=== PATIENT | female | born 1990 | race Two or more races ===

== ENCOUNTER 2020-07-13 14:16 | Outpatient (REF) | payer OTHER, SELFPAY ==
[2020-07-14 15:02] LABS: BV Int Neg Control Negative (Negative); BV Int Pos Control Positive (Positive)
== END 2020-07-13 14:17 | disposition home or self-care (01) ==
LOC: HO.LAB 14:16
PROVIDERS: PCP Internal Medicine; Referring Provider Internal Medicine; Visit Provider Advanced Practice Midwife
DX: Z30.431 Encounter for routine checking of intrauterine contraceptive device (principal); N89.8 Other specified noninflammatory disorders of vagina
CPT/HCPCS: 87480; 87510; 87660; 99213

== ENCOUNTER 2020-10-12 08:12 | Outpatient (REF) | payer OTHER, SELFPAY ==
[2020-10-13 09:29] LABS: BV Int Neg Control Negative (Negative); BV Int Pos Control Positive (Positive)
[2020-10-14 00:27] LABS: C. trachomatis RNA TMA NOT DETECTED (NOT DETECTED); N. gonorrhoeae RNA TMA NOT DETECTED (NOT DETECTED)
[2020-10-15 07:51] LABS: HPV mRNA E6/E7 Not Detected (Not Detected)
== END 2020-10-12 08:13 | disposition home or self-care (01) ==
LOC: HO.LAB 08:12
PROVIDERS: PCP Internal Medicine; Visit Provider Advanced Practice Midwife
DX: Z01.419 Encounter for gynecological examination (general) (routine) without abnormal findings (principal); N89.8 Other specified noninflammatory disorders of vagina; F17.200 Nicotine dependence, unspecified, uncomplicated; Z20.2 Contact with and (suspected) exposure to infections with a predominantly sexual mode of transmission; Z97.5 Presence of (intrauterine) contraceptive device
CPT/HCPCS: 36415; 87480; 87491; 87510; 87591; 87624; 87625; 87660; 88141; 88142

== ENCOUNTER 2020-10-27 15:23 | Outpatient (REF) | payer OTHER, SELFPAY ==
--- NOTE | 2020-10-27 15:27 | XR_ITS ---
EXAMINATION: XR CHEST CLINICAL INFORMATION: Cough COMPARISON: Previous chest x-ray most recent April 2013 TECHNIQUE: 2 views of the chest were obtained. FINDINGS: No significant abnormality is noted involving the heart, lungs, mediastinum, bony thorax or soft tissues. XR/XR chest 2V IMPRESSION: Unremarkable examination.
== END 2020-10-27 15:24 | disposition home or self-care (01) ==
LOC: HO.HMGCX 15:23
PROVIDERS: PCP Internal Medicine; Visit Provider Internal Medicine
DX: R05 Cough (principal)
CPT/HCPCS: 71046

== ENCOUNTER 2021-04-06 10:41 | Outpatient (REF) | payer OTHER, SELFPAY ==
[2021-04-07 05:34] LABS: CT PCR NOT DETECTED (Not Detect.); NG PCR NOT DETECTED (Not Detect.)
[2021-04-07 08:51] LABS: BV Int Neg Control Negative (Negative); BV Int Pos Control Positive (Positive)
== END 2021-04-06 10:42 | disposition home or self-care (01) ==
LOC: HO.LAB 10:41
PROVIDERS: PCP Internal Medicine; Visit Provider Advanced Practice Midwife
DX: Z11.3 Encounter for screening for infections with a predominantly sexual mode of transmission (principal); N76.0 Acute vaginitis; Z20.2 Contact with and (suspected) exposure to infections with a predominantly sexual mode of transmission
CPT/HCPCS: 87480; 87491; 87510; 87591; 87660; 99212

== ENCOUNTER 2021-09-21 15:10 | Outpatient (REF) | payer OTHER, SELFPAY ==
[2021-09-22 03:21] LABS: CT PCR NOT DETECTED (Not Detect.); NG PCR NOT DETECTED (Not Detect.)
[2021-09-22 09:44] LABS: BV Int Neg Control Negative (Negative); BV Int Pos Control Positive (Positive)
== END 2021-09-21 15:11 | disposition home or self-care (01) ==
LOC: HO.LAB 15:10
PROVIDERS: Advanced Practice Midwife; PCP Internal Medicine; Visit Provider Advanced Practice Midwife
DX: N76.0 Acute vaginitis (principal); R30.0 Dysuria; R10.2 Pelvic and perineal pain; T83.32XA Displacement of intrauterine contraceptive device, initial encounter; Z20.2 Contact with and (suspected) exposure to infections with a predominantly sexual mode of transmission; Z32.02 Encounter for pregnancy test, result negative
CPT/HCPCS: 81003; 81025; 87086; 87480; 87491; 87510; 87591; 87660; 99212

== ENCOUNTER → 2021-10-06 09:09 | Outpatient (BNVA) | payer OTHER, SELFPAY | PROVIDERS: PCP Internal Medicine; Visit Provider Advanced Practice Midwife ==

== ENCOUNTER 2021-10-13 13:14 | Outpatient (REF) | payer OTHER, SELFPAY ==
--- NOTE | ~2021-10-13 | US_ITS ---
EXAMINATION: US PELVIS CLINICAL INFORMATION: Intrauterine device COMPARISON: 05.14.2020 TECHNIQUE: Ultrasound of the pelvis is performed using both transabdominal and transvaginal transducers along with Doppler. Transvaginal imaging is performed due to inadequate visualization transabdominally. FINDINGS: Uterus: The uterus is anteverted and measures 8.9 x 3.7 x 4.6 cm. Intrauterine device appears centrally located within the endometrial canal, with the tip 5 mm fundus. The double wall endometrial thickness is 0.2 mm. The uterus is smooth in contour and has normal myometrial echogenicity. No visible fibroid. Nabothian cysts present within the cervix. Adnexa: Both ovaries are visualized. There is normal color flow to the adnexa. There is no ovarian torsion. There is no pelvic ascites or fluid collection. Right ovary measures 3.8 x 2.0 x 1.6 cm. Physiologic follicles present. Left ovary measures 3.9 x 1.9 x 2.2 cm. Physiologic follicles present. US/US pelvic and transvaginal IMPRESSION: IUD appropriately positioned within the endometrial canal.
== END 2021-10-13 13:15 | disposition home or self-care (01) ==
LOC: HO.US 13:14
PROVIDERS: Visit Provider Advanced Practice Midwife
DX: R10.2 Pelvic and perineal pain (principal); T83.32XA Displacement of intrauterine contraceptive device, initial encounter
CPT/HCPCS: 76830; 76856

== ENCOUNTER → 2021-11-03 11:26 | Outpatient (BNVA) | payer OTHER, SELFPAY | PROVIDERS: PCP Internal Medicine; Visit Provider Advanced Practice Midwife ==

== ENCOUNTER 2022-03-07 08:46 | Emergency (ER) | payer OTHER, SELFPAY ==
--- NOTE | ~2022-03-07 | US_ITS ---
EXAMINATION: US PELVIS AND TRANSVAGINAL CLINICAL INFORMATION: Left pelvic pain with history of ovarian cysts. COMPARISON: Pelvic ultrasound 10/13/2021. Pelvis ultrasound 05/14/2020. TECHNIQUE: Ultrasound of the pelvis is performed using both transabdominal and transvaginal transducers along with Doppler. Transvaginal imaging is performed due to inadequate visualization transabdominally. FINDINGS: Uterus: The uterus is retroverted and measures 7.6 x 4.0 x 5.1 cm. The double wall endometrial thickness is not appreciated as an IUD is present in good position. The uterus is smooth in contour and has normal myometrial echogenicity. No visible fibroid. A nabothian cyst is present in the cervix. Adnexa: Both ovaries are visualized. There is normal color flow to the adnexa. There is no ovarian torsion. There is no pelvic ascites or large fluid collection. Right ovary measures 3.4 x 1.3 x 2.4 cm for a volume of 5.5 mL. Left ovary measures 5.7 x 3.9 x 6.1 cm for a volume of 71 mL which includes a large hemorrhagic cyst measuring 4.8 x 3.3 x 4.3 cm, new when compared to the prior. A small amount of free fluid is present around the left ovary. US/US pelvic and transvaginal IMPRESSION: Large hemorrhagic left ovarian cyst, new when compared to 05/14/2020.
[2022-03-07 09:20] VITALS: BP 107/67; PULSE 90; RESP 18; TEMP 37.8; O2SAT 97; BMI 26.9
--- NOTE | 2022-03-07 11:32 | ED_ITS ---
HPI - General Adult General Chief complaint: Headache Stated complaint: Migraine/L lower abd pain Time Seen by Provider: 03/07/22 11:30 Source: patient Mode of arrival: ambulatory Limitations: no limitations History of Present Illness HPI narrative: 31-year-old female came in for evaluation of left lower abdominal/pelvic pain and migraine. Started with left lower pelvic pain is mostly in the left groin area, pain has been constant for the past 3 days described as severe pain localized to left groin area, pain is more when she urinate and also with movement, pain is not radiating described as constant wax and wanes, no dysuria or frequency. Patient has a history of ovarian cyst and get similar pain. Sera. Patient also is known to have migraine been having whole head pain bilateral jaws pain and teeth pain. Associated with nausea, subjective fever, no sore throat, no coughing. No sick contact. Related Data Home Medications Medication Instructions Recorded Confirmed levonorgestrel 20 mcg/24 hours (7 0 device vaginal ONCE 07/13/20 01/04/22 yrs) 52 mg intrauterine device Previous Rx's Medication Instructions Recorded diphenhydramine HCl 25 mg capsule 25 mg PO BEDTIME PRN sleep #60 caps 07/20/20 (Benadryl) buspirone 5 mg tablet 5 mg PO BID #30 tabs 10/14/20 benzonatate 100 mg capsule 100 mg PO TID #30 caps 10/27/20 (Tessalon Perles) sumatriptan succinate 50 mg tablet 50 mg PO Q2-4H PRN migraine 09/29/21 (Imitrex) headache #20 tabs fexofenadine 180 mg tablet 180 mg PO DAILY #90 tabs 01/04/22 fluticasone propionate 50 2 spray intranasal DAILY 1 month 01/04/22 mcg/actuation nasal #16 grams spray,suspension (Allergy Relief (fluticasone)) sodium chloride 0.65 % nasal spray 2 spray intranasal Q2H PRN dry 01/04/22 aerosol ([place] Saline) nasal passages #50 mL Allergies Allergy/AdvReac Type Severity Reaction Status Date / Time No Known Allergies Allergy Verified 01/04/22 10:20 Review of Systems Review of Systems: All other systems are reviewed and are negative Constitutional: Reports as per HPI and Reports no additional constitutional complaints Eyes: Reports as per HPI and Reports no additional eye complaints Reports system reviewed and no additional complaints, except as documented Cardiovascular: Reports as per HPI and Reports no additional cardiovascular complaints Respiratory: Reports as per HPI and Reports no additional respiratory complaints Gastrointestinal: Reports as per HPI and Reports no additional gastrointestinal complaints Genitourinary: Reports no additional female genitourinary complaints Musculoskeletal: Reports no additional musculoskeletal complaints Skin/Breast: Reports system reviewed and no additional complaints, except as docu Psychiatric: Reports no additional psychiatric complaints Endocrine: Reports no additional endocrine complaints Hematologic/Lymphatic: Reports no additional hematologic/lymphatic complaints Allergic/Immunologic: Reports no additional allergic/immunologic complaints Reports system reviewed and no additional complaints, except as documented and Reports Abnormal speech present COUNTS INCLUDE 234 BEDS AT THE [facility] Past Medical History Medical History Anemia History of abnormal cervical Pap smear History of anxiety Migraine Family History Family History Mother Ovarian cancer Metastatic disease H/O colectomy Maternal Grandmother Heart disease CVD (cardiovascular disease) Diabetes mellitus Maternal Grandfather Hypertension Social History Social History Alcohol intake: current Alcohol intake frequency: holidays/special occasions only Alcohol type: other Patient Tobacco Use Status: Former Tobacco user Smoked in Last 30 Days: No Use of substances other than those prescribed or required for medical reasons: No Advance Directives: No Advance Directives Information Provided: No Patient : No Current occupational status: employed Current occupation: [employer] Physical Exam ED Vital Signs: Vital Signs - 24 hr 03/07/22 09:20 03/07/22 12:20 Temperature 100.1 F Pulse Rate 90 83 Respiratory Rate 18 18 Blood Pressure 107/67 129/62 Pulse Oximetry 97 99 Oxygen Delivery Method Room Air Room Air BMI result Body Mass Index 26.9 Vital signs have been reviewed as appeared to be correct. Blood pressure normal. Heart rate normal. Respiration rate normal. Temperature low-grade fever. Oxygen saturation normal. Appearance: Alert. Oriented X3. No acute distress. Head: Normal external exam. Normocephalic. Atraumatic. No García signs noted. No raccoon eyes noted Eyes: PERRLA. EOMI. Conjunctiva and sclera normal. Eyelids normal. ENT: TM's Normal. Pharynx normal. Uvula midline. Moist mucous membranes. No trismus noted. No drooling noted. No muffled voice noted. Neck: Normal inspection. Neck supple. FROM. No adenopathy. Thyroid Normal. No meningeal signs. No neck mass noted. CVS: Normal heart rate and rhythm. Heart sound normal. No murmurs noted. Pulses normal throughout. Respiratory: No respiratory distress. Painless inspiration. Breath sounds normal. No wheezes/rales/rhonchi noted. Chest nontender. No accessory muscle usage noted or decreased air movement noted. Abdomen: Soft, mild left lower quadrant tenderness, no rebound tenderness, no guarding.. Bowel sounds normal in all 4 quadrants. No distention noted. No organomegaly noted. No visible injury noted. Back: No CVA tenderness. Full range of motion noted. Skin: Skin warm and dry. Normal skin color. Normal skin turgor. No rashes/le sions/lacerations noted. Extremities: No lower extremity edema. Extremities exhibit normal range of motion. Extremities nontender. Neuro: Oriented X 3. Cranial nerve exam: II-XII are grossly intact No motor deficit. No sensory deficit. Reflexes normal. Course Course Course Narrative: Assessment and plan. 31-year-old female came in for headache and left lower abdominal pain, patient is known to have ovarian cysts, ultrasound is showing hemorrhagic cyst on the left ovary 4.8 x 3.3 x 4.3, otherwise unremarkable ovaries, abdominal pain and headache has improved with Toradol/morphine, patient was instructed to follow-up with her OBGYN in regard to her chronic pelvic pain and chronic cyst formation. Patient also tested positive for COVID that is probably reason for patient's headache. Medical Decision Making Lab Data Lab results reviewed: Yes I reviewed the patient's lab results. Result diagrams: 03/07/22 12:06 03/07/22 12:06 Labs: Lab Results 03/07/22 03/07/22 03/07/22 Range/Units 12:06 12:06 12:06 WBC 5.0 (4.8-10.8) X10*3/uL RBC 3.85 L (4.20-5.50) X10*6/uL Hgb 11.6 L (12.0-16.0) g/dl Hct 35.1 L (37.0-47.0) % MCV 91.2 (80.0-98.0) fL MCH 30.1 (27.0-33.0) pg MCHC 33.0 (31.0-35.0) g/dl RDW 11.9 (11.0-16.0) % Plt Count 183 (160-400) X10*3/uL MPV 10.8 (9.4-12.3) fL Immature Gran % (Auto) 0.2 (0.0-0.4) % Neut % (Auto) 75.4 H (45-73) % Lymph % (Auto) 7.5 L (20-40) % [place]uming % (Auto) 16.5 H (2-11) % Eos % (Auto) 0.2 (0-4) % Baso % (Auto) 0.2 (0-2) % Lymph # (Auto) 0.4 L (1.2-4.9) X10*3/uL [place]uming # (Auto) 0.8 (0.1-1.2) X10*3/uL Eos # (Auto) 0.0 (0.0-0.4) X10*3/uL Baso # (Auto) 0.0 (0.0-0.2) X10*3/uL Abs Immat Gran (auto) 0.01 (0.00-0.03) X10*3/uL Absolute Neuts (auto) 3.7 (2.0-8.3) x10*3/uL Absolute Nucleated RBC 0.000 (0.0-0.012) X10*3/uL Nucleated RBC % (auto) 0.0 (0.0-0.2) /100WBC Sodium 138 (135-145) mmol/L Potassium 3.6 (3.3-5.1) mmol/L Chloride 108 (96-108) mmol/L Carbon Dioxide 23 (22-29) mmol/L Anion Gap 11 L (12-20) BUN 9 (9-16) mg/dL Creatinine 0.72 (0.5-1.4) mg/dL Estim Creat Clear Calc 101.3 Estimated GFR > 60 Random Glucose 81 (60-115) mg/dL Calcium 9.0 (8.4-10.2) mg/dL Total Bilirubin 0.3 (0.0-1.0) mg/dL Direct Bilirubin < 0.2 (0.0-0.5) mg/dL AST 16 (5-31) U/L ALT 16 (0-31) U/L Alkaline Phosphatase 39 (39-117) U/L Total Protein 7.1 (6.5-8.0) g/dL Albumin 4.3 (3.5-5.0) g/dL Lipase 15 (8-78) U/L Urine Color Urine Appearance Urine pH (5.0-8.0) Ur Specific [place] (1.005-1.025) Urine Protein (NEG-TRACE) MG/DL Urine Glucose (UA) (NEG) MG/DL Urine Ketones (NEG) MG/DL Urine Blood (NEG) Urine Nitrite (NEG) Ur Leukocyte Esterase (NEG) Urine RBC (0) /HPF Urine WBC (0-4) /HPF Ur Squamous Epith Cells /LPF Urine Bacteria /LPF Urine Test (NEGATIVE) Influenza Type A (PCR) NEGATIVE (Negative) Influenza Type B (PCR) NEGATIVE (Negative) RSV RNA Qual (PCR) NEGATIVE (Negative) SARS-CoV-2 RNA (RT-PCR) POSITIVE A (Negative) 03/07/22 03/07/22 Range/Units 12:18 12:18 WBC (4.8-10.8) X10*3/uL RBC (4.20-5.50) X10*6/uL Hgb (12.0-16.0) g/dl Hct (37.0-47.0) % MCV (80.0-98.0) fL MCH (27.0-33.0) pg MCHC (31.0-35.0) g/dl RDW (11.0-16.0) % Plt Count (160-400) X10*3/uL MPV (9.4-12.3) fL Immature Gran % (Auto) (0.0-0.4) % Neut % (Auto) (45-73) % Lymph % (Auto) (20-40) % [place] % (Auto) (2-11) % Eos % (Auto) (0-4) % Baso % (Auto) (0-2) % Lymph # (Auto) (1.2-4.9) X10*3/uL [place] # (Auto) (0.1-1.2) X10*3/uL Eos # (Auto) (0.0-0.4) X10*3/uL Baso # (Auto) (0.0-0.2) X10*3/uL Abs Immat Gran (auto) (0.00-0.03) X10*3/uL Absolute Neuts (auto) (2.0-8.3) x10*3/uL Absolute Nucleated RBC (0.0-0.012) X10*3/uL Nucleated RBC % (auto) (0.0-0.2) /100WBC Sodium (135-145) mmol/L Potassium (3.3-5.1) mmol/L Chloride (96-108) mmol/L Carbon Dioxide (22-29) mmol/L Anion Gap (12-20) BUN (9-16) mg/dL Creatinine (0.5-1.4) mg/dL Estim Creat Clear Calc Estimated GFR Random Glucose (60-115) mg/dL Calcium (8.4-10.2) mg/dL Total Bilirubin (0.0-1.0) mg/dL Direct Bilirubin (0.0-0.5) mg/dL AST (5-31) U/L ALT (0-31) U/L Alkaline Phosphatase (39-117) U/L Total Protein (6.5-8.0) g/dL Albumin (3.5-5.0) g/dL Lipase (8-78) U/L Urine Color STRAW Urine Appearance HAZY Urine pH 6.5 (5.0-8.0) Ur Specific [place] 1.010 (1.005-1.025) Urine Protein NEG (NEG-TRACE) MG/DL Urine Glucose (UA) NEG (NEG) MG/DL Urine Ketones NEG (NEG) MG/DL Urine Blood TRACE (NEG) Urine Nitrite NEG (NEG) Ur Leukocyte Esterase NEG (NEG) Urine RBC 1-4 (0) /HPF Urine WBC 0 (0-4) /HPF Ur Squamous Epith Cells TRACE /LPF Urine Bacteria TRACE /LPF Urine Test NEGATIVE (NEGATIVE) Influenza Type A (PCR) (Negative) Influenza Type B (PCR) (Negative) RSV RNA Qual (PCR) (Negative) SARS-CoV-2 RNA (RT-PCR) (Negative) Imaging Data Pelvic ultrasound: Attestation: I personally reviewed and interpreted this imaging study as follows: Radiologist's impression: IUD in place, left ovary home original cyst 4.8 x 3.3 x 4.3 left ovary 5.7 x 3.9 x 6.1 cm in, right ovary 3.4 time 1.3 x 2.4 in signs, free fluid seen to left ovary. Discharge Plan Discharge Clinical Impression: Migraine, Pelvic pain, Ovarian cyst, COVID Patient Disposition: Home, Self-Care Instructions: Covid-19 Viral Syndrome and Novel Coronavirus (ED) Hey/Ath, Ovarian Cyst (ED), Migraine Headache (ED) Additional Instructions: Follow-up with your OBGYN for further evaluation of recurrent ovarian cyst, take ibuprofen 200 mg every 6 hours if needed for pain. Keep social distancing, were mask at all times, frequent hand washing, self quarantine for 7 days. Prescriptions: No Action sumatriptan succinate [Imitrex] 50 mg tablet 50 mg PO Q2-4H MDD 200 mg PRN (Reason: migraine headache) Qty: 20 0RF fexofenadine 180 mg tablet 180 mg PO DAILY Qty: 90 1RF diphenhydramine HCl [Benadryl] 25 mg capsule 25 mg PO BEDTIME PRN (Reason: sleep) Qty: 60 0RF Rx Instructions: 1-2 tablets as needed for nausea/ migraine headaches /sleep buspirone 5 mg tablet 5 mg PO BID Qty: 30 2RF benzonatate [Tessalon Perles] 100 mg capsule 100 mg PO TID Qty: 30 0RF fluticasone propionate [Allergy Relief (fluticasone)] 50 mcg/actuation spray,suspension 2 spray intranasal DAILY 30 Days Qty: 16 4RF Rx Instructions: administer into each nostril [place] Saline 0.65 % aerosol,spray 2 spray intranasal Q2H PRN (Reason: dry nasal passages) Qty: 50 0RF Mirena 20 mcg/24 hours (5 yrs) 52 mg intrauterine device 0 device vaginal ONCE Referrals: Liliana Cooper MD [Primary Care Provider] - Stand Alone Forms: Work/School Release
[2022-03-07 12:12] LABS: MANUAL DIFF FLAG NO
[2022-03-07] MEDS: Ketorolac Tromethamine 30 MG/ML VIAL IVPUSH (12:12)
[2022-03-07] MEDS: ondansetron HCL 4 MG/2 ML VIAL IVPUSH (12:12)
[2022-03-07] MEDS: 0.9 % Sodium Chloride 1,000 ML 999 ML IV (12:13)
[2022-03-07 12:15] LABS: Basophils Percent Auto 0.2 % (0-2); Eosinophils Percent Auto 0.2 % (0-4); Hematocrit 35.1 % (37.0-47.0); Hemoglobin 11.6 g/dl (12.0-16.0); Imm Gran Abs Auto 0.01 X10*3/uL (0.00-0.03); Imm Gran Pct Auto 0.2 % (0.0-0.4); Lymphocytes Absolute Auto 0.4 X10*3/uL (1.2-4.9); Lymphocytes Percent Auto 7.5 % (20-40); Mean Corpuscular Hemoglobin 30.1 pg (27.0-33.0); Mean Corpuscular Volume 91.2 fL (80.0-98.0); Mean Platelet Volume 10.8 fL (9.4-12.3); Monocytes Absolute Auto 0.8 X10*3/uL (0.1-1.2); Monocytes Percent Auto 16.5 % (2-11); Neutrophils Absolute Auto 3.7 x10*3/uL (2.0-8.3); Neutrophils Percent Auto 75.4 % (45-73); Platelet Count 183 X10*3/uL (160-400); Red Blood Count 3.85 X10*6/uL (4.20-5.50); Red Cell Distribution Width 11.9 % (11.0-16.0)
[2022-03-07 12:20] VITALS: BP 129/62; PULSE 83; RESP 18; O2SAT 99
[2022-03-07 12:25] LABS: Appearance Urine HAZY; Color Urine STRAW; Glucose Urine UA NEG (NEG); Leukocyte Esterase Urine NEG (NEG); Nitrite Urine NEG (NEG); PH 6.5 (5.0-8.0); UACC Culture Trigger NO; Urine Blood TRACE (NEG); Urine Ketones NEG (NEG); Urine Protein NEG (NEG-TRACE)
[2022-03-07 12:28] LABS: UPreg QC Valid YES; Urine Pregnancy NEGATIVE (NEGATIVE)
[2022-03-07 12:35] LABS: Bacteria Urine TRACE /LPF; Squamous Epithelial Cell Urine TRACE /LPF; WBC Urine 0 /HPF (0-4)
[2022-03-07 12:39] LABS: Alanine Aminotransferase 16 U/L (0-31); Albumin Level 4.3 g/dL (3.5-5.0); Alkaline Phosphatase 39 U/L (39-117); Anion Gap 11 (12-20); Aspartate Amino Transferase 16 U/L (5-31); Bilirubin Direct < 0.2 mg/dL (0.0-0.5); Bilirubin Total 0.3 mg/dL (0.0-1.0); Blood Urea Nitrogen 9 mg/dL (9-16); Carbon Dioxide 23 mmol/L (22-29); Chloride 108 mmol/L (96-108); Creatinine Clr Calc Pharmacy 101.3; Estimated Glomerular Filt Rate > 60; Glucose Random 81 mg/dL (60-115); Lipase 15 U/L (8-78); Potassium 3.6 mmol/L (3.3-5.1); Sodium 138 mmol/L (135-145); Total Protein 7.1 g/dL (6.5-8.0)
[2022-03-07 12:53] LABS: Influenza A PCR NEGATIVE (Negative); Influenza B PCR NEGATIVE (Negative); Resp Syncy Virus RNA Qual PCR NEGATIVE (Negative); SARS COV2 PCR INHOUSE POSITIVE (Negative)
[2022-03-07] MEDS: Morphine Sulfate 2 MG/ML CARTRIDGE 1 MG IVPUSH (14:04)
== END 2022-03-07 15:27 | disposition home or self-care (01) ==
PROVIDERS: Emergency Provider Emergency Medicine; PCP Internal Medicine
DX: U07.1 COVID-19 (principal); G43.909 Migraine, unspecified, not intractable, without status migrainosus; R10.32 Left lower quadrant pain; R50.9 Fever, unspecified; N83.202 Unspecified ovarian cyst, left side
CPT/HCPCS: 0241U; 36415; 76830; 76856; 80048; 80076; 81001; 81025; 83690; 85025; 96361; 96374; 96375; 99284; J1885; J2270; J2405

== ENCOUNTER 2022-03-22 09:07 | Outpatient (REF) | payer OTHER, SELFPAY ==
[2022-03-22 14:05] LABS: CT PCR NOT DETECTED (Not Detect.); NG PCR NOT DETECTED (Not Detect.)
== END 2022-03-22 09:08 | disposition home or self-care (01) ==
LOC: HO.LAB 09:07
PROVIDERS: Visit Provider Obstetrics & Gynecology
DX: Z11.3 Encounter for screening for infections with a predominantly sexual mode of transmission (principal); N83.202 Unspecified ovarian cyst, left side; R10.2 Pelvic and perineal pain
CPT/HCPCS: 87491; 87591; 99212

== ENCOUNTER 2022-05-12 14:59 | Outpatient (REF) | payer OTHER, SELFPAY ==
--- NOTE | ~2022-05-12 | US_ITS ---
EXAMINATION: US PELVIS CLINICAL INFORMATION: Left ovarian cysts, follow-up. COMPARISON: 03/07/2022, 10/13/2021 TECHNIQUE: Ultrasound of the pelvis is performed using both transabdominal and transvaginal transducers along with Doppler. Transvaginal imaging is performed due to inadequate visualization transabdominally. FINDINGS: The uterus is heterogeneous and measures 9.7 x 3.7 x 4.7 cm. No discrete fibroids. Uterus is retropositioned. IUD in place within the endometrial cavity. No significant free fluid. Endometrial thickness is difficult to evaluate due to IUD. Right ovary measures 3.2 x 2.2 x 2.9 cm, volume 10.7 mL. Prominent right ovarian cyst is characteristic of a follicle, physiologic. Left ovary measures 4.3 x 2.3 x 2.6 cm, volume 13.5 mL. 2.1 x 1.5 x 1.9 cm left ovarian complex cyst is smaller than the previously 4.8 x 3.3 x 4.3 cm hemorrhagic cyst. Small amount of free fluid is redemonstrated adjacent to the left ovary. Nabothian cysts. US/US pelvic and transvaginal IMPRESSION: 2.1 cm complex left ovarian cyst has decreased in size, characteristic of a corpus luteum.
== END 2022-05-12 15:00 | disposition home or self-care (01) ==
LOC: HO.US 14:59
PROVIDERS: Visit Provider Obstetrics & Gynecology
DX: N83.202 Unspecified ovarian cyst, left side (principal)
CPT/HCPCS: 76830; 76856

== ENCOUNTER → 2022-06-08 13:07 | Outpatient (BNVA) | payer OTHER, SELFPAY | PROVIDERS: PCP Internal Medicine; Visit Provider Obstetrics & Gynecology | DX: N83.299 Other ovarian cyst, unspecified side (principal) | CPT/HCPCS: 99212 ==

== ENCOUNTER 2022-09-07 13:15 | Outpatient (REF) | payer OTHER, SELFPAY ==
--- NOTE | ~2022-09-07 | US_ITS ---
EXAMINATION: US PELVIS CLINICAL INFORMATION: Pelvic pain. Follow-up ovarian cyst. IUD. COMPARISON: None TECHNIQUE: Ultrasound of the pelvis is performed using both transabdominal and transvaginal transducers along with Doppler. Transvaginal imaging is performed due to inadequate visualization transabdominally. FINDINGS: Uterus is heterogeneous and measures 8.0 x 5.2 x 4.7 cm. No discrete fibroids. IUD in place within the endometrial cavity. There is no significant free fluid. Bilateral ovaries are unremarkable. Right ovary measures 3.3 x 1.8 x 1.6 cm, volume 5.0 mL. Left ovary measures 3.3 x 2.4 x 2.1 cm, volume 8.1 mL. US/US pelvic and transvaginal IMPRESSION: 1. IUD in place within the endometrial cavity. 2. Unremarkable bilateral ovaries. 3. No discrete fibroids. 4. Endometrial thickness 0.2 cm.
== END 2022-09-07 13:16 | disposition home or self-care (01) ==
LOC: HO.US 13:15
PROVIDERS: PCP Internal Medicine; Visit Provider Obstetrics & Gynecology
DX: N83.299 Other ovarian cyst, unspecified side (principal)
CPT/HCPCS: 76830; 76856

== ENCOUNTER 2022-09-20 17:20 | Outpatient (REF) | payer OTHER, SELFPAY ==
[2022-09-20 18:15] LABS: Influenza A PCR POSITIVE (Negative); Influenza B PCR NEGATIVE (Negative); Resp Syncy Virus RNA Qual PCR NEGATIVE (Negative); SARS COV2 PCR INHOUSE NEGATIVE (Negative)
== END 2022-09-20 17:21 | disposition home or self-care (01) ==
LOC: HO.LNP 17:20
PROVIDERS: Visit Provider Emergency Medicine
DX: Z20.822 Contact with and (suspected) exposure to COVID-19 (principal); R68.89 Other general symptoms and signs
CPT/HCPCS: 0241U

== ENCOUNTER → 2022-10-12 11:22 | Outpatient (BNVA) | payer OTHER, SELFPAY | PROVIDERS: Visit Provider Obstetrics & Gynecology | DX: Z13.89 Encounter for screening for other disorder (principal) ==

== ENCOUNTER 2022-11-07 11:17 | Outpatient (REF) | payer OTHER, SELFPAY ==
[2022-11-08 06:02] LABS: CT PCR NOT DETECTED (Not Detect.); NG PCR NOT DETECTED (Not Detect.)
== END 2022-11-07 11:18 | disposition home or self-care (01) ==
LOC: HO.LNP 11:17
PROVIDERS: Visit Provider Advanced Practice Midwife
DX: Z01.419 Encounter for gynecological examination (general) (routine) without abnormal findings (principal); Z11.3 Encounter for screening for infections with a predominantly sexual mode of transmission
CPT/HCPCS: 0353U

== ENCOUNTER 2023-02-07 08:46 | Outpatient (REF) | payer OTHER, SELFPAY ==
[2023-02-07 11:47] LABS: MANUAL DIFF FLAG NO
[2023-02-07 11:51] LABS: Basophils Absolute Auto 0.1 X10*3/uL (0.0-0.2); Basophils Percent Auto 1.2 % (0-2); Eosinophils Absolute Auto 0.1 X10*3/uL (0.0-0.4); Eosinophils Percent Auto 2.2 % (0-4); Hematocrit 36.1 % (37.0-47.0); Hemoglobin 11.7 g/dl (12.0-16.0); Lymphocytes Absolute Auto 1.5 X10*3/uL (1.2-4.9); Lymphocytes Percent Auto 29.4 % (20-40); Mean Corpuscular HGB Conc 32.4 g/dl (31.0-35.0); Mean Corpuscular Hemoglobin 30.4 pg (27.0-33.0); Mean Corpuscular Volume 93.8 fL (80.0-98.0); Mean Platelet Volume 11.5 fL (9.4-12.3); Monocytes Absolute Auto 0.5 X10*3/uL (0.1-1.2); Monocytes Percent Auto 9.2 % (2-11); Neutrophils Absolute Auto 2.9 x10*3/uL (2.0-8.3); Platelet Count 248 X10*3/uL (160-400); Red Blood Count 3.85 X10*6/uL (4.20-5.50); Red Cell Distribution Width 11.9 % (11.0-16.0)
[2023-02-07 12:57] LABS: Alanine Aminotransferase 15 U/L (0-31); Albumin Level 4.2 g/dL (3.5-5.0); Alkaline Phosphatase 38 U/L (39-117); Anion Gap 10 (12-20); Aspartate Amino Transferase 16 U/L (5-31); Bilirubin Total 0.3 mg/dL (0.0-1.0); Blood Urea Nitrogen 21 mg/dL (9-16); Calcium 9.2 mg/dL (8.4-10.2); Carbon Dioxide 26 mmol/L (22-29); Chloride 109 mmol/L (96-108); Cholesterol 214 mg/dL; Estimated Glomerular Filt Rate > 60; Glucose Fasting 92 mg/dL (60-99); HDL Cholesterol 46 mg/dL; Iron 63 mcg/dL (30-160); LDL Cholesterol Calculated 156 mg/dl; Percent Iron Saturation 26 % (15-50); Potassium 4.4 mmol/L (3.3-5.1); Sodium 141 mmol/L (135-145); Total Iron Binding Capacity 245 mcg/dL (228-428); Total Protein 6.7 g/dL (6.5-8.0); Triglycerides 64 mg/dL; Unsaturated Iron Binding 182 ug/dL
[2023-02-07 13:23] LABS: TSH reflex Free T4 0.67 uIU/mL (0.32-4.0)
== END 2023-02-07 08:47 | disposition home or self-care (01) ==
LOC: HO.HMGCLDS 08:46
PROVIDERS: PCP Internal Medicine; Visit Provider Internal Medicine
DX: Z00.00 Encounter for general adult medical examination without abnormal findings (principal); D64.9 Anemia, unspecified
CPT/HCPCS: 36415; 80053; 80061; 83540; 84443; 85025

== ENCOUNTER 2023-07-11 10:08 | Outpatient (AMB) | payer OTHER, SELFPAY ==
--- NOTE | 2023-07-11 10:10 | AM.OFFWIN_ITS ---
Intake Vital Signs 07/11/23 10:13 Height 5 ft 2 in Weight 175 lb 2 oz BMI 32.0 BP 112/62 Blood Pressure Location Lt brachial Position Sitting Pulse 74 Pulse Source Pulse Oximeter Temp 98 F Intake Visit Reasons: EP, right ear pain [phone] Intake Note: pt is here for c/o right ear pain, travels to back of head Patient Tobacco Use Status: Former Tobacco user Allergies No Known Allergies Allergy (Verified 07/11/23 10:10) Do you need a note to return to daycare/school/sports/work: No HPI EP, right ear pain [phone] HPI Details 32-year-[facility] 4 day history of worsening right ear pain. Denies any other sick symptoms. Denies any known exposure to sick contacts. Denies any fever or chills. Ear ache has now been causing her to have headache. [facility] Medical History History of abnormal cervical Pap smear URI (upper respiratory infection) Cough Symptomatic mammary hypertrophy Anxiety History of anxiety Migraine Anemia Family History Mother Ovarian cancer Metastatic disease H/O colectomy Maternal Grandmother Heart disease CVD (cardiovascular disease) Diabetes mellitus Maternal Grandfather Hypertension Social History Housing: House Alcohol intake: current Alcohol intake frequency: holidays/special occasions only Alcohol type: other Patient Tobacco Use Status: Former Tobacco user e-Cigarette/Vaping Use: Never Used Current occupational status: employed 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 Sexual orientation: Straight/Heterosexual Gender identity: Female Cognitive needs: No Hearing needs: No Vision needs: No Female Reproductive History Menstrual Age of Menarche: 13 Review of Systems Const All systems reviewed & are unremarkable except as noted in HPI and below Physical Exam Vital Signs: Last Vital Signs Temp 98 F 07/11/23 10:13 Pulse 74 07/11/23 10:13 BP 112/62 07/11/23 10:13 BMI result Body Mass Index 32.0 Const General: cooperative and no acute distress HEENT Head: Yes normal to inspection Ears: hearing grossly normal bilaterally, TM normal on the left and TM abnormal (Right TM erythematous, with purulent effusion) General nose exam: Normal external nose present Face and sinus: Yes normal facial exam and Yes sinuses nontender Mouth: Normal oral and palatal mucosa present Throat: Yes posterior oropharynx normal Neck Neck: Yes lymphadenopathy (Right submandibular) Resp Effort & Inspection: normal respiratory effort and able to speak in complete sentences Auscultation: clear to auscultation bilaterally Cardio Jugular venous distension: no JVD Palpation: normal PMI Rate: regular rate Rhythm: regular rhythm Skin General skin exam: no rashes or lesions noted Extrem General: Yes capillary refill normal and Yes no clubbing, cyanosis or edema Psych Appearance: grossly normal Mental Status: mental status grossly normal Speech and movement: Normal speech and movement present Assessment & Plan Assessment & Plan (1) Right otitis media with effusion: Code(s): H65.91 - Unspecified nonsuppurative otitis media, right ear Plan: Augmentin 10 days for right otitis media. Advised Tylenol/Motrin for any symptomatic relief. Reviewed indications, use, possible side effects of medication. If she does not improve with treatment, or if symptoms worsen, she should return to the clinic for further evaluation. She verbalizes understanding and agrees to plan. She reports yeast infections with antibiotic use. I will send fluconazole PO, should she need this following antibiotic use. Medications: New amoxicillin-pot clavulanate 875-125 mg 1 tab PO BID 10 days 20 tabs 0RF H65.91 - Unspecified nonsuppurative otitis media, right ear fluconazole may repeat second dose 72 hrs after first dose if symptoms persist 150 mg PO Q3D 2 tabs 0RF 2 doses Coding Level of Care Code Est Pt Level 3 (27276) Diagnoses Right otitis media with effusion H65.91
[2023-07-11 10:13] VITALS: BP 112/62; PULSE 74; TEMP 36.6; BMI 32.0
== END 2023-07-11 10:58 | disposition home or self-care (01) ==
PROVIDERS: PCP Internal Medicine; Visit Provider Nurse Practitioner Family
DX: H65.91 Unspecified nonsuppurative otitis media, right ear (principal)
CPT/HCPCS: 99213

== ENCOUNTER 2023-12-27 13:34 | Emergency (ER) | payer OTHER, SELFPAY ==
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
[2023-12-27 13:37] VITALS: BP 127/74; PULSE 56; RESP 18; O2SAT 98; BMI 30.7
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
[2023-12-27] MEDS: Ibuprofen 600 MG TABLET PO (15:38)
[2023-12-27] MEDS: Acetaminophen 325 MG TABLET 975 MG PO (15:39)
[2023-12-27 15:52] VITALS: BP 118/64; PULSE 76; RESP 19; TEMP 37; O2SAT 100
[2023-12-27 16:07] VITALS: BP 118/64; PULSE 76; RESP 18; TEMP 37; O2SAT 100
== END 2023-12-27 16:08 | disposition home or self-care (01) ==
PROVIDERS: Emergency Provider Emergency Medicine; PCP Internal Medicine
DX: S16.1XXA Strain of muscle, fascia and tendon at neck level, initial encounter (principal); S40.012A Contusion of left shoulder, initial encounter; R51.9 Headache, unspecified; M54.2 Cervicalgia; M25.512 Pain in left shoulder; V43.52XA Car driver injured in collision with other type car in traffic accident, initial encounter; Y93.9 Activity, unspecified; Y92.410 Unspecified street and highway as the place of occurrence of the external cause; Y99.8 Other external cause status
CPT/HCPCS: 70450; 72125; 73030; 73060; 73130; 99283; 99284

== ENCOUNTER 2024-01-09 08:35 | Outpatient (AMB) | payer OTHER, SELFPAY ==
[2024-01-09 08:38] VITALS: BP 100/62; BMI 31.6
--- NOTE | 2024-01-09 08:38 | MHC.OFFVIS ---
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 Doing well with concerns: She reports pain on the lower left side at times, history of ovarian cyst. She denies any urinary symptoms. She tries to eat healthy and stays active with exercise. Has monthly bleeding with her Mirena IUD inserted 06/07/2020. Currently is sexually active w/senior living partner. She denies vaginal itching and irritation. STI screening offered; she accepts. Denies family history of breast or colon cancer. Family history of ovarian cancer-mom, BRCA2 negative. Last pap smear 2020, negative. [facility] Medical History History of abnormal cervical Pap smear URI (upper respiratory infection) Cough Symptomatic mammary hypertrophy Anxiety History of anxiety Migraine Anemia Family History Mother Ovarian cancer Metastatic disease H/O colectomy Maternal Grandmother Heart disease CVD (cardiovascular disease) Diabetes mellitus Maternal Grandfather Hypertension Social History Housing: House Alcohol intake: current Alcohol intake frequency: holidays/special occasions only Alcohol type: other Patient Tobacco Use Status: Former Tobacco user e-Cigarette/Vaping Use: Never Used Current occupational status: employed Current occupation: [employer] Sexual orientation: Straight/Heterosexual Gender identity: Female Cognitive needs: No Hearing needs: No Vision needs: No Female Reproductive History Menstrual Age of Menarche: 13 control method: progestin IUCD (Mirena 05/2020) Total pregnancies: 2 Full term: 2 Number of Living Children: 2 Date of last pap smear: 10/12/20 (neg pap and hpv) History of abnormal pap smear: Yes (10/06 ascus +hpv 08/06 colpo gale 1 04/06 lgsil 09/06 lgsil 10/08 colpo) Review of Systems Const All systems reviewed & are unremarkable except as noted in HPI and below Reports as per HPI Eyes Reports no additional complaints ENT Reports no additional complaints Card Reports no additional complaints Resp Reports no additional complaints GI Reports as per HPI and Reports no additional complaints Reports as per HPI Musc Reports no additional complaints Skin/Breast Reports as per HPI Neuro Reports no additional complaints Psych Reports no additional complaints Endo Reports no additional complaints Jack/Lymph Reports no additional complaints Aller/Immun Reports no additional complaints Physical Exam Vital Signs: Last Vital Signs BP 100/62 01/09/24 08:38 BMI result Body Mass Index 31.6 Const General: cooperative, healthy appearing, no acute distress, well developed and alert Orientation/consciousness: patient oriented x3 HEENT Head: Yes normal to inspection Eyes General: appearance normal, both eyes and all related structures Neck Neck: Yes normal visual inspection Thyroid: Thyroid normal Chest Chest palpation & inspection: normal inspection of the chest and other (no puckering, dimpling, peau de orange, retraction, discharge, masses) Breast/axilla inspection: normal inspection of the breasts Breast/axilla palpation: normal palpation of the breasts Resp Effort & Inspection: normal respiratory effort GI Inspection: Yes normal to inspection Palpation (GI): Soft to palpation Rectal Exam - Female: deferred General: Yes bladder normal to palpation External Female Exam: normal external appearance and normal appearance of the urethra Speculum Exam - Vagina: normal appearance of the vagina, normal palpation and normal vaginal discharge Speculum Exam - Cervix: normal appearance of the cervix, normal palpation and Other cervical findings present (IUD strings present at the os) Bimanual exam- vagina & uterus: normal bimanual exam, normal palpation, uterine size normal, bladder normal to palpation, normal palpation and non-tender Bimanual Exam- Adnexa, other: no masses Skin General skin exam: no rashes or lesions noted Rashes: no rashes Neuro General: patient oriented x3 Cognition (Neuro): normal cognition Extrem General: Yes normal to inspection Psych Attitude: cooperative Thought process: Normal thought process present Assessment & Plan Assessment & Plan (1) Well woman exam with routine gynecological exam: Code(s): Z01.419 - Encounter for gynecological examination (general) (routine) without abnormal findings Plan: Discussed: Current recommendations for pap smears per ASCCP guidelines. Breast awareness and periodic breast exams. Maintain a healthy lifestyle including a well balanced diet and routine exercise. Plan ultrasound workup, cultures, follow up ultrasound results in person. Patient verbalizes understanding and agrees to the plan of care. She was given opportunity to ask questions and all questions were answered to the best of my ability. RTO in one year for annual anesthesiology physician assistant examination. This note is constructed using voice recognition software. While every effort has been made to ensure accuracy, wellness assistant errors may have been included. Orders: Orders Hepatitis C Antibody Reflex Today Z20.2 - Contact with and (suspected) exposure to infections with a predominantly sexual mode of transmission Hepatitis B Core Antibody Today Z20.2 - Contact with and (suspected) exposure to infections with a predominantly sexual mode of transmission HIV Ab/Ag Today Z20.2 - Contact with and (suspected) exposure to infections with a predominantly sexual mode of transmission Syphilis Screen Today Z20.2 - Contact with and (suspected) exposure to infections with a predominantly sexual mode of transmission Bacterial Vaginosis Panel Today R10.2 - Pelvic and perineal pain CT NG by PCR Today R10.2 - Pelvic and perineal pain Coding Level of Care Code Est Pt Prev Care 18-39y(22518) Diagnoses Well woman exam with routine gynecological exam Z01.419
== END 2024-01-09 09:12 | disposition home or self-care (01) ==
LOC: HO.HWS 08:35
PROVIDERS: PCP Internal Medicine; Visit Provider Advanced Practice Midwife
DX: Z01.419 Encounter for gynecological examination (general) (routine) without abnormal findings (principal)
CPT/HCPCS: 99395

== ENCOUNTER 2024-01-09 08:35 | Outpatient (REF) | payer OTHER, SELFPAY ==
[2024-01-09 11:04] LABS: HBc Num1 0.08 S/CO (0.00-0.79); HIV AB/AG Nonreactive (Nonreactive); HIV Num 1 0.12 S/CO (0.00-0.99); Hepatitis B Core Antibody Nonreactive (Nonreactive); ~HepC Num1 0.13 S/CO (0.00-0.79); ~Hepatitis C Antibody Nonreactive (Nonreactive)
[2024-01-09 11:17] LABS: Syphilis Screen Nonreactive (Nonreactive)
[2024-01-09 17:57] LABS: CT PCR NOT DETECTED (Not Detect.); NG PCR NOT DETECTED (Not Detect.)
[2024-01-10 12:40] LABS: BV Int Neg Control Negative (Negative); BV Int Pos Control Positive (Positive)
== END 2024-01-09 08:36 | disposition home or self-care (01) ==
LOC: HO.LAB 08:35
PROVIDERS: PCP Internal Medicine; Visit Provider Advanced Practice Midwife
DX: Z01.419 Encounter for gynecological examination (general) (routine) without abnormal findings (principal); Z11.4 Encounter for screening for human immunodeficiency virus [HIV]; Z20.2 Contact with and (suspected) exposure to infections with a predominantly sexual mode of transmission; R10.2 Pelvic and perineal pain
CPT/HCPCS: 0353U; 86704; 86780; 86803; 87389; 87480; 87510; 87660; 99395

== ENCOUNTER 2024-01-09 09:06 | Outpatient (REF) | payer OTHER, SELFPAY | END 2024-01-09 09:07 | disposition home or self-care (01) | LOC: HO.LNP 09:06 | PROVIDERS: Visit Provider Advanced Practice Midwife | DX: Z13.89 Encounter for screening for other disorder (principal) ==

== ENCOUNTER 2024-01-25 11:27 | Outpatient (REF) | payer OTHER, SELFPAY ==
--- NOTE | ~2024-01-25 | US_ITS ---
EXAMINATION: US PELVIS CLINICAL INFORMATION: Pelvic and perineal pain LMP: No menses because of IUD. COMPARISON: Pelvic ultrasound 09/07/2022, 05/12/2022, 10/13/2021 TECHNIQUE: Ultrasound of the pelvis is performed using both transabdominal and transvaginal transducers along with Doppler. Transvaginal imaging is performed due to inadequate visualization transabdominally. FINDINGS: Uterus: The uterus is retroverted and measures 7.9 x 3.5 x 4.9 cm. No focal fibroid The endometrial thickness is 0.2 cm. The IUD appears in proper position. Adnexa: Both ovaries are visualized. There is normal color flow to the adnexa. There is no ovarian torsion. There is no pelvic ascites or fluid collection. Right ovary measures 3.6 x 1.6 x 2.5cm. Volume 7.5 mL. There are multiple peripheral subcentimeter follicles in the right ovary. Left ovary measures 4.0 x 2.0 x 2.5 cm. Volume 10.5 mL. There are multiple peripheral subcentimeter follicles in the left ovary. With the enlarged left ovary and multiple small follicles bilaterally, these findings raise the question of polycystic ovary syndrome. US/US pelvic and transvaginal IMPRESSION: 1. The IUD appears in proper position. 2. Enlarged left ovary and multiple peripheral subcentimeter follicles in both ovaries raise the question of polycystic ovary syndrome.
== END 2024-01-25 11:28 | disposition home or self-care (01) ==
LOC: HO.US 11:27
PROVIDERS: PCP Internal Medicine; Visit Provider Advanced Practice Midwife
DX: R10.2 Pelvic and perineal pain (principal)
CPT/HCPCS: 76830; 76856

== ENCOUNTER 2024-02-13 10:30 | Outpatient (REF) | payer OTHER, SELFPAY ==
[2024-02-13 10:43] LABS: MANUAL DIFF FLAG NO
[2024-02-13 11:07] LABS: Basophils Percent Auto 0.7 % (0-2); Eosinophils Absolute Auto 0.1 X10*3/uL (0.0-0.4); Eosinophils Percent Auto 1.2 % (0-4); Hematocrit 35.4 % (37.0-47.0); Hemoglobin 11.8 g/dl (12.0-16.0); Imm Gran Abs Auto 0.01 X10*3/uL (0.00-0.03); Imm Gran Pct Auto 0.2 % (0.0-0.4); Lymphocytes Absolute Auto 1.6 X10*3/uL (1.2-4.9); Lymphocytes Percent Auto 28.3 % (20-40); Mean Corpuscular HGB Conc 33.3 g/dl (31.0-35.0); Mean Corpuscular Hemoglobin 30.7 pg (27.0-33.0); Mean Corpuscular Volume 92.2 fL (80.0-98.0); Mean Platelet Volume 11.3 fL (9.4-12.3); Monocytes Absolute Auto 0.6 X10*3/uL (0.1-1.2); Monocytes Percent Auto 10.5 % (2-11); Neutrophils Absolute Auto 3.4 x10*3/uL (2.0-8.3); Neutrophils Percent Auto 59.1 % (45-73); Platelet Count 227 X10*3/uL (160-400); Red Blood Count 3.84 X10*6/uL (4.20-5.50); Red Cell Distribution Width 11.9 % (11.0-16.0); White Blood Count 5.7 X10*3/uL (4.8-10.8)
[2024-02-13 11:50] LABS: Alanine Aminotransferase 15 U/L (0-31); Albumin Level 4.4 g/dL (3.5-5.0); Alkaline Phosphatase 40 U/L (39-117); Anion Gap 12 (12-20); Aspartate Amino Transferase 16 U/L (5-31); Bilirubin Total 0.4 mg/dL (0.0-1.0); Blood Urea Nitrogen 14 mg/dL (9-16); Calcium 9.5 mg/dL (8.4-10.2); Carbon Dioxide 23 mmol/L (22-29); Chloride 109 mmol/L (96-108); Cholesterol 230 mg/dL (<200); Estimated Glomerular Filt Rate > 60; Glucose Fasting 90 mg/dL (60-99); HDL Cholesterol 53 mg/dL (>40); LDL Cholesterol Calculated 164 mg/dL (<100); Sodium 140 mmol/L (135-145); Total Protein 7.4 g/dL (6.5-8.0); Triglycerides 66 mg/dL (<150)
[2024-02-13 12:16] LABS: Appearance Urine Clear; Color Urine Yellow; Glucose Urine UA Negative (Negative); Leukocyte Esterase Urine Moderate (2+) (Negative); Nitrite Urine Negative (Negative); PH 7.5 (5.0-9.0); Specific Gravity - Urine 1.025 (1.005-1.025); UMIC TRIGGER UA YES; Urine Blood Trace (Negative); Urine Ketones Negative (Negative); Urine Protein Negative (Neg-Trace)
[2024-02-13 12:19] LABS: Bacteria Urine 1+ (None Seen); Hyaline Casts Urine 0-2 /LPF (0-2); RBC Urine 0-2 /HPF (0-2)
== END 2024-02-13 10:31 | disposition home or self-care (01) ==
LOC: HO.LAB 10:30
PROVIDERS: PCP Internal Medicine; Visit Provider Internal Medicine
DX: Z00.00 Encounter for general adult medical examination without abnormal findings (principal)
CPT/HCPCS: 36415; 80053; 80061; 81001; 85025

== ENCOUNTER 2024-02-14 08:12 | Outpatient (AMB) | payer OTHER, SELFPAY ==
--- NOTE | 2024-02-14 08:13 | MHC.PC.OV ---
Vital Signs 02/14/24 08:14 Height 5 ft 2 in Weight 172 lb BMI 31.5 BP 98/65 Blood Pressure Location Rt brachial Position Sitting Pulse 75 Pulse Source Pulse Oximeter Pulse Oximetry (%) 99 Oxygen Delivery Method Room Air Intake Visit Reasons: Annual PE Intake Note: Pt is here today for PE. Allergies No Known Allergies Allergy (Verified 02/14/24 08:15) Medication List - Last Reconciled 02/14/24 by Liliana Cooper MD ibuprofen 600 mg PO Q8H PRN levonorgestrel 0 device vaginal ONCE sumatriptan succinate (Imitrex) 50 mg PO Q2-4H PRN MDD 200 mg Tobacco use date assessed: 02/14/24 Dental Screening Dental Screen Date: 02/14/24 Did you have a dental visit in the last 12 months?: Yes Did you have a dental problem in the last 6 months where you did not have access to dental care?: No Was dental information given to patient?: Patient has dentist HPI Annual PE HPI Details Pt presents for PE. Pt c/o intermittent right upper quadrant and epigastric abd pain after eating greasy, fried foods on and off for 6 months. She denies nausea vomiting fever chills back pain, change in bowel habits PFSH Medical History (Updated 02/14/24 @ 09:26 by Liliana Cooper MD) History of abnormal cervical Pap smear URI (upper respiratory infection) Cough Symptomatic mammary hypertrophy Anxiety History of anxiety Migraine Anemia Surgical History (Updated 02/14/24 @ 08:18 by ISAI Harrison) No pertinent past surgical history Family History Mother Ovarian cancer Metastatic disease H/O colectomy Maternal Grandmother Heart disease CVD (cardiovascular disease) Diabetes mellitus Maternal Grandfather Hypertension Social History Housing: House Alcohol intake: current Alcohol intake frequency: holidays/special occasions only Alcohol type: other Patient Tobacco Use Status: Former Tobacco user e-Cigarette/Vaping Use: Never Used service: No Current occupational status: employed 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 1. Little interest or pleasure in doing things: not at all 2. Feeling down, depressed, or hopeless: not at all 3. Trouble falling or staying asleep, or sleeping too much: several days 4. Feeling tired or having little energy: several days 5. Poor appetite or overeating: not at all 6. Feeling bad about yourself - or that you are a failure or have let yourself or your family down: not at all 7. Trouble concentrating on things, such as reading the newspaper or watching television: not at all 8. Moving or speaking so slowly that other people could have noticed. Or the opposite - being so fidgety or restless that you have been moving around a lot more than usual: not at all 9. Thoughts that you would be better off or of hurting yourself in some way: not at all Total score: 2 Depression Screening Interpretation: Negative Depression Screening Done: Yes Source: Developed by Drs. James Coburn, Lorna Gallagher, Luis Norris and colleagues, with an educational hung from [employer]. Thrive Questionnaire Date Thrive assessed: 02/14/24 I am a: Patient What is your living situation today?: I have a steady place to live Within the past 12 months, did the food you bought not last and you didn't have the money to get more?: Never true Within the past 12 months, did you worry whether your food would run out before you got money to buy more?: Never true Do you have trouble paying for medicines?: No Do you have trouble getting transportation to medical appointments?: No Do you have trouble paying your heating and electricity bill?: No Do you have trouble taking care of your child, family member or friend?: No Do you have trouble with day-to-day activities such as bathing, preparing meals, shopping, managing finances, etc.?: No Are you currently unemployed and looking for a job?: No Are you interested in more education?: No Please select the resources that you would like help with: None THRIVE Score: 0 AUDIT C Alcohol Use Questionnaire (AUDIT-C) 1. How often do you have a drink containing alcohol?: Monthly or less 2. How many drinks containing alcohol do you have on a typical day when you are drinking?: 1 or 2 3. How often do you have six or more drinks on one occasion?: Never Total Score: 1 ROCIO-7 AMB Questionnaire ROCIO-7 Date ROCIO - 7 assessed: 02/14/24 Feeling nervous, anxious, or on edge: 0 = Not at all Not being able to stop or control worryin = Not at all Worrying too much about different things: 0 = Not at all Trouble relaxin = Not at all Being so restless that it is hard to sit still: 0 = Not at all Becoming easily annoyed or irritable: 0 = Not at all Feeling afraid as if something awful might happen: 0 = Not at all Total ROCIO-7 score (0-4 normal; 5-9 mild; 10-14 moderate; 15-21 severe): 0 Source: Developed by Drs. James Coburn, Lorna Gallagher, Luis Norris and colleagues, with an educational hung from [employer]. Review of Systems Const All systems reviewed & are unremarkable except as noted in HPI and below Reports no additional complaints Eyes Reports no additional complaints ENT Reports no additional complaints Card Reports no additional complaints Resp Reports no additional complaints GI Reports no additional complaints Physical exam (Primary Care) Vital Signs: Last Vital Signs Pulse 75 02/14/24 08:14 BP 98/65 02/14/24 08:14 Pulse Ox 99 02/14/24 08:14 Oxygen Delivery Method Room Air 02/14/24 08:14 BMI result Body Mass Index 31.5 Tobacco/Smoking Status: Tobacco use Status Tobacco use date assessed 02/14/24 02/14/24 08:18 Patient Tobacco Use Status Former Tobacco user 02/14/24 08:18 e-Cigarette/Vaping Use Never Used 02/14/24 08:18 PHQ-9: PHQ-9 Score PHQ-9: Total score 2 02/14/24 08:20 Depression Screening Interpretation: Negative Thrive Assessment: Date of Thrive Assessment Date Thrive assessed 02/14/24 02/14/24 08:20 Const General: no acute distress HENMT Head: Yes normal to inspection Ears: hearing grossly normal bilaterally General nose exam: Normal external nose present Face and sinus: Yes normal facial exam Throat: Yes posterior oropharynx normal Eyes General: appearance normal, both eyes and all related structures Neck Neck: Yes no lymphadenopathy and Yes supple Resp Effort & Inspection: normal respiratory effort Auscultation: clear to auscultation bilaterally Cardio Rhythm: regular rhythm Heart sounds: S1 normal heart sound present and S2 normal heart sound present GI Inspection: Yes normal to inspection Palpation (GI): Soft to palpation Percussion: Yes normal to percussion Auscultation: normal bowel sounds Assessment and Plan Assessment & Plan (1) Hyperlipidemia: Code(s): E78.5 - Hyperlipidemia, unspecified Plan: Low-cholesterol diet increase physical activity weight loss discussed with the patient check lipid profile in 6 months (2) Right upper quadrant abdominal pain: Code(s): R10.11 - Right upper quadrant pain Plan: Obtain abdominal ultrasound to rule out gallstones (3) Annual physical exam: Code(s): Z00.00 - Encounter for general adult medical examination without abnormal findings Plan: Well-balanced diet regular exercise weight loss discussed with the patient. Orders: Orders Lipid Panel 6 Months E78.5 - Hyperlipidemia, unspecified US abdomen limited Today R10.11 - Right upper quadrant pain Medications: Refilled sumatriptan succinate (Imitrex) 50 mg PO Q2-4H PRN 20 tabs 0RF migraine headache MDD 200 mg Coding Level of Care Code Est Pt Prev Care 18-39y(68529) Diagnoses Hyperlipidemia E78.5 Right upper quadrant abdominal pain R10.11 Annual physical exam Z00.00
[2024-02-14 08:14] VITALS: BP 98/65; PULSE 75; O2SAT 99; BMI 31.5
== END 2024-02-14 08:58 | disposition home or self-care (01) ==
LOC: HO.HMGC 08:12
PROVIDERS: PCP Internal Medicine; Visit Provider Internal Medicine
DX: E78.5 Hyperlipidemia, unspecified (principal); R10.11 Right upper quadrant pain; Z00.00 Encounter for general adult medical examination without abnormal findings
CPT/HCPCS: 99395

== ENCOUNTER 2024-02-19 11:28 | Outpatient (AMB) | payer OTHER, SELFPAY ==
--- NOTE | 2024-02-19 11:28 | MHC.OFFVIS ---
Vital Signs 02/19/24 11:39 Height 5 ft 2 in Weight 172 lb BMI 31.5 BP 110/68 Intake Visit Reasons: US follow up Skein Bleacher: Skein Bleacher Present Allergies No Known Allergies Allergy (Verified 02/19/24 11:40) Is last menstrual period known: Yes Last menstrual period: 02/14/24 HPI Comments Details: Patient is here today for a follow up ultrasound, previously had some breakthrough bleeding more cyclic in pattern, she reports has improved. PFSH Medical History History of abnormal cervical Pap smear URI (upper respiratory infection) Cough Symptomatic mammary hypertrophy Anxiety History of anxiety Migraine Anemia Surgical History No pertinent past surgical history Family History Mother Ovarian cancer Metastatic disease H/O colectomy Maternal Grandmother Heart disease CVD (cardiovascular disease) Diabetes mellitus Maternal Grandfather Hypertension Social History Housing: House Alcohol intake: current Alcohol intake frequency: holidays/special occasions only Alcohol type: other Patient Tobacco Use Status: Former Tobacco user e-Cigarette/Vaping Use: Never Used service: No Current occupational status: employed 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 Sexual orientation: Straight/Heterosexual Gender identity: Female Cognitive needs: No Hearing needs: No Vision needs: No Female Reproductive History Menstrual Age of Menarche: 13 Duration of menses: <3 days Date of last menstrual period: 02/14/24 control method: progestin IUCD Review of Systems Const All systems reviewed & are unremarkable except as noted in HPI and below Endo Reports no additional complaints Physical Exam Vital Signs: Last Vital Signs BP 110/68 02/19/24 11:39 BMI result Body Mass Index 31.5 Const General: cooperative, healthy appearing and no acute distress Psych Appearance: well kempt Attitude: cooperative Thought process: Normal thought process present Results Reviewed Results Reviewed: [address] [address] Ultrasound Report Signed Patient: Justus Cates MR#: [id number] : 1990 Acct:[id number] Age/Sex: 33 / F ADM Date: 01/25/24 Loc: [facility].US Attending Dr: Letty Herzog CNM Ordering Physician: Letty Herzog CNM Date of Service: 01/25/24 Procedure(s): US pelvic and transvaginal Accession Number(s): [id number] cc: Liliana Cooper MD; Letty Herzog CNM~ EXAMINATION: US PELVIS CLINICAL INFORMATION: Pelvic and perineal pain LMP: No menses because of IUD. COMPARISON: Pelvic ultrasound 09/07/2022, 05/12/2022, 10/13/2021 TECHNIQUE: Ultrasound of the pelvis is performed using both transabdominal and transvaginal transducers along with Doppler. Transvaginal imaging is performed due to inadequate visualization transabdominally. FINDINGS: Uterus: The uterus is retroverted and measures 7.9 x 3.5 x 4.9 cm. No focal fibroid The endometrial thickness is 0.2 cm. The IUD appears in proper position. Adnexa: Both ovaries are visualized. There is normal color flow to the adnexa. There is no ovarian torsion. There is no pelvic ascites or fluid collection. Right ovary measures 3.6 x 1.6 x 2.5cm. Volume 7.5 mL. There are multiple peripheral subcentimeter follicles in the right ovary. Left ovary measures 4.0 x 2.0 x 2.5 cm. Volume 10.5 mL. There are multiple peripheral subcentimeter follicles in the left ovary. With the enlarged left ovary and multiple small follicles bilaterally, these findings raise the question of polycystic ovary syndrome. US/US pelvic and transvaginal IMPRESSION: 1. The IUD appears in proper position. 2. Enlarged left ovary and multiple peripheral subcentimeter follicles in both ovaries raise the question of polycystic ovary syndrome. Dictated By: Aruna Mcneil MD Signed By: <Electronically signed by Aruna Mcneil MD in OV> 01/31/24 1005 DD/ 1210 TD/TT: Value Advisor: Assessment & Plan Assessment & Plan (1) Encounter to discuss test results: Code(s): Z71.2 - Person consulting for explanation of examination or test findings Plan Discussed: Ultrasound findings, left ovary with noted peripheral follicles. IUD in the proper position. Not criteria for PCOS due to lack of symptoms. We discussed her history of a ovarian cyst in 2021 on left side. Advised if any pelvic pain on the left, pressure, discomfort or irregular bleeding patterns or other concerns, to notify the office sooner. Keep annual visit as scheduled. All of her questions and concerns were addressed to the best of my ability and shared decision making. She is agreeable to the plan of care. This note is constructed using voice recognition software. While every effort has been made to ensure accuracy, presser and shaper knitted goods errors may have been included. Coding Level of Care Code Est Pt Level 3 (09015) Diagnoses Encounter to discuss test results Z71.2
[2024-02-19 11:39] VITALS: BP 110/68; BMI 31.5
== END 2024-02-19 12:56 | disposition home or self-care (01) ==
LOC: HO.HWS 11:28
PROVIDERS: PCP Internal Medicine; Visit Provider Advanced Practice Midwife
DX: Z71.2 Person consulting for explanation of examination or test findings (principal)
CPT/HCPCS: 99213

== ENCOUNTER → 2024-02-19 11:28 | Outpatient (BNVA) | payer OTHER, SELFPAY | PROVIDERS: PCP Internal Medicine; Visit Provider Advanced Practice Midwife | DX: Z71.2 Person consulting for explanation of examination or test findings (principal); R10.2 Pelvic and perineal pain; Z97.5 Presence of (intrauterine) contraceptive device | CPT/HCPCS: 99212 ==

== ENCOUNTER 2024-02-22 08:39 | Outpatient (REF) | payer OTHER, SELFPAY ==
--- NOTE | ~2024-02-22 | US_ITS ---
EXAMINATION: US ABDOMEN LIMITED CLINICAL INFORMATION: Right upper quadrant pain. Rule out gallstones. COMPARISON: Ultrasound abdomen complete 12/20/2016. CT abdomen and pelvis 01/01/2016. TECHNIQUE: Real-time imaging of the right upper quadrant abdominal viscera. FINDINGS: PANCREAS: Normal head and body, the tail is partly obscured by bowel gas. LIVER: Normal. The liver is normal in size. The liver contour is normal. Parenchymal echogenicity is normal. No focal hepatic lesion. There is no intrahepatic biliary duct dilatation seen. GALLBLADDER: Normal. The gallbladder is physiologically distended without evidence of stones, sludge, polyps, wall thickening or pericholecystic fluid. No sonographic Gagnon's sign. COMMON BILE DUCT: Normal in caliber measuring 0.30 cm in diameter. RIGHT KIDNEY: Normal. No hydronephrosis. No renal calculi or focal parenchymal lesions. The kidney measures 10.6 cm in maximum dimension. FREE FLUID: None. US/US abdomen limited IMPRESSION: No abnormality demonstrated. No cholelithiasis.
== END 2024-02-22 08:40 | disposition home or self-care (01) ==
LOC: HO.HMGCX 08:39
PROVIDERS: PCP Internal Medicine; Visit Provider Internal Medicine
DX: R10.11 Right upper quadrant pain (principal)
CPT/HCPCS: 76705

== ENCOUNTER 2024-03-04 08:56 | Outpatient (AMB) | payer OTHER, SELFPAY ==
[2024-03-04 09:41] VITALS: BP 112/68; PULSE 72; TEMP 36.3; O2SAT 99; BMI 32.0
--- NOTE | 2024-03-04 09:41 | MHC.OFFWIV ---
Intake Vital Signs 03/04/24 09:41 Height 5 ft 2 in Weight 175 lb BMI 32.0 BP 112/68 Blood Pressure Location Lt brachial Position Sitting Pulse 72 Pulse Source Pulse Oximeter Temp 97.4 F Temp Source Temporal Artery Scan Pulse Oximetry (%) 99 Oxygen Delivery Method Room Air Intake Visit Reasons: Bad Cough/ Rib Pain Intake Note: pt is here today for bad cough and rib pain started 3 days ago Patient Tobacco Use Status: Former Tobacco user Allergies No Known Allergies Allergy (Verified 03/04/24 10:17) Medication List - Last Reconciled 03/04/24 by ANIKA Vaz ibuprofen 600 mg PO Q8H PRN levonorgestrel 0 device vaginal ONCE sumatriptan succinate (Imitrex) 50 mg PO Q2-4H PRN MDD 200 mg Do you need a note to return to daycare/school/sports/work: Yes HPI HPI Comments History of Present Illness Details Patient is a 33-year-old female in today for a sick visit. Patient reports returning from [place] 3 days prior when she got back home developed symptoms of sore throat and cough. Reports that she has been bringing up clear mucus. Reports that she also feels tired and has been taking naps during the day which is unlike her. Denies fever but reports chills. Denies chest pain shortness a breath, nausea, vomiting, diarrhea. [facility] Medical History History of abnormal cervical Pap smear URI (upper respiratory infection) Cough Symptomatic mammary hypertrophy Anxiety History of anxiety Migraine Anemia Surgical History No pertinent past surgical history Family History Mother Ovarian cancer Metastatic disease H/O colectomy Maternal Grandmother Heart disease CVD (cardiovascular disease) Diabetes mellitus Maternal Grandfather Hypertension Social History Housing: House Alcohol intake: current Alcohol intake frequency: holidays/special occasions only Alcohol type: other Patient Tobacco Use Status: Former Tobacco user e-Cigarette/Vaping Use: Never Used service: No Current occupational status: employed 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 Sexual orientation: Straight/Heterosexual Gender identity: Female Cognitive needs: No Hearing needs: No Vision needs: No Female Reproductive History Menstrual Age of Menarche: 13 Review of Systems Const All systems reviewed & are unremarkable except as noted in HPI and below Denies chills, Denies fever(s) and Reports lethargy Eyes Denies blurry vision and Denies diplopia ENT Reports post nasal drip and Reports sore throat Card Denies chest pain, Denies dyspnea and Denies dyspnea on exertion Resp Reports cough, Denies dyspnea and Denies dyspnea on exertion GI Denies diarrhea, Denies nausea and Denies vomiting Physical Exam Vital Signs: Last Vital Signs Temp 97.4 F 03/04/24 09:41 Pulse 72 03/04/24 09:41 BP 112/68 03/04/24 09:41 Pulse Ox 99 03/04/24 09:41 Oxygen Delivery Method Room Air 03/04/24 09:41 BMI result Body Mass Index 32.0 Vital signs reviewed stable. Const Other: Appearance: Alert.? Oriented X3.? Head: Normocephalic. Eyes: Sclera white. ENT: +post nasal drip. +pharynx erythema, cobblestoned. TM intact and pearly sequeira. +clear nasal discharge. ? Neck: Normal inspection.? Neck supple.? CVS: Normal heart rate and rhythm.? Pulses normal.? Respiratory: No respiratory distress.? Breath sounds normal.?+dry cough. Neuro: Oriented X 3.? Results AMB Rapid Strep AMB Rapid Strep Negative Last Edit by EMMETT Roa on 03/04/24 10:14 Assessment & Plan Assessment & Plan (1) URI (upper respiratory infection): Comment: Obtained URI swab. Patient likely has viral infection. Should stay hydrated and rest. Will provide work note for 2 days. Will give prednisone. Code(s): J06.9 - Acute upper respiratory infection, unspecified Qualifiers: URI type: unspecified URI Qualified Code(s): J06.9 - Acute upper respiratory infection, unspecified Plan: Patient has been educated on signs of worsening symptoms when to report back to the walk-in or when to present to the ED (2) Post-nasal drip: Comment: Likely exacerbating cough and sore throat. Patient has been instructed she can use cetirizine 10 mg p.o. daily. Code(s): R09.82 - Postnasal drip Plan: Follow up with pcp. Orders: Orders AMB Rapid Strep Screen Today Z13.9 - Encounter for screening, unspecified SARS-CoV2/FLU/RSV Today J06.9 - Acute upper respiratory infection, unspecified Medications: New albuterol sulfate 90 mcg/actuation 2 puffs inhalation Q6H PRN 6.7 grams 0RF shortness of breath or wheezing prednisone 40 mg (2 x 20 mg) PO DAILY 10 tabs 0RF Coding Level of Care Code Est Pt Level 3 (78815) Diagnoses Upper respiratory tract infection, unspecified type J06.9 URI type: unspecified URI Post-nasal drip R09.82 Time Spent (min) 23
== END 2024-03-04 10:33 | disposition home or self-care (01) ==
PROVIDERS: PCP Internal Medicine; Visit Provider Nurse Practitioner Primary Care
DX: J02.9 Acute pharyngitis, unspecified (principal)
CPT/HCPCS: 87880; 99213

== ENCOUNTER 2024-03-04 14:11 | Outpatient (REF) | payer OTHER, SELFPAY ==
[2024-03-04 15:05] LABS: Influenza A PCR NEGATIVE (Negative); Influenza B PCR NEGATIVE (Negative); Resp Syncy Virus RNA Qual PCR NEGATIVE (Negative); SARS COV2 PCR INHOUSE NEGATIVE (Negative)
== END 2024-03-04 14:12 | disposition home or self-care (01) ==
LOC: HO.LNP 14:11
PROVIDERS: Visit Provider Nurse Practitioner Primary Care
DX: J06.9 Acute upper respiratory infection, unspecified (principal)
CPT/HCPCS: 0241U

== ENCOUNTER 2024-06-19 09:06 | Outpatient (REF) | payer OTHER, SELFPAY ==
[2024-06-19 13:47] LABS: Influenza A PCR NEGATIVE (Negative); Influenza B PCR NEGATIVE (Negative); Resp Syncy Virus RNA Qual PCR NEGATIVE (Negative); SARS COV2 PCR INHOUSE NEGATIVE (Negative)
== END 2024-06-19 09:07 | disposition home or self-care (01) ==
LOC: HO.LNP 09:06
PROVIDERS: PCP Internal Medicine; Visit Provider Nurse Practitioner Family
DX: J02.9 Acute pharyngitis, unspecified (principal)
CPT/HCPCS: 0241U; 87880; 99212

== ENCOUNTER 2024-06-19 09:06 | Outpatient (AMB) | payer OTHER, SELFPAY ==
[2024-06-19 10:11] VITALS: BP 122/78; PULSE 71; TEMP 37.2; O2SAT 98; BMI 36.0
--- NOTE | 2024-06-19 10:11 | MHC.OFFWIV ---
Intake Vital Signs 06/19/24 10:11 Height 5 ft 2 in Weight 197 lb BMI 36.0 BP 122/78 Blood Pressure Location Rt brachial Position Sitting Pulse 71 Pulse Source Pulse Oximeter Temp 99.0 F Temp Source Oral Pulse Oximetry (%) 98 Oxygen Delivery Method Room Air Intake Visit Reasons: EP-cough, chest pain, sinusitis, vomiting Intake Note: Patient here for weakness,body aches, cough, rib pain from coughing, bilat ear pain. She mentioned her kids were recently sick with viral infection. Patient Tobacco Use Status: Former Tobacco user Allergies No Known Allergies Allergy (Verified 06/19/24 10:31) Do you need a note to return to daycare/school/sports/work: Yes HPI EP-cough, chest pain, sinusitis, vomiting HPI Details This is a 33-year-old female patient who presents to the walk-in clinic today with a 6 day history of sore throat, weakness, body aches, bilateral ear pain. Her kids were recently sick, and her son was treated for strep so does this past week. Reports low grade fever/chills at home. Has been taking Ibuprofen. [facility] Medical History History of abnormal cervical Pap smear URI (upper respiratory infection) Cough Symptomatic mammary hypertrophy Anxiety History of anxiety Migraine Anemia Surgical History No pertinent past surgical history Family History Mother Ovarian cancer Metastatic disease H/O colectomy Maternal Grandmother Heart disease CVD (cardiovascular disease) Diabetes mellitus Maternal Grandfather Hypertension Social History Housing: House Alcohol intake: current Alcohol intake frequency: holidays/special occasions only Alcohol type: other Patient Tobacco Use Status: Former Tobacco user e-Cigarette/Vaping Use: Never Used service: No Current occupational status: employed 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 Sexual orientation: Straight/Heterosexual Gender identity: Female Cognitive needs: No Hearing needs: No Vision needs: No Female Reproductive History Menstrual Age of Menarche: 13 Review of Systems Const All systems reviewed & are unremarkable except as noted in HPI and below Physical Exam Vital Signs: Last Vital Signs Temp 99.0 F 06/19/24 10:11 Pulse 71 06/19/24 10:11 BP 122/78 06/19/24 10:11 Pulse Ox 98 06/19/24 10:11 Oxygen Delivery Method Room Air 06/19/24 10:11 BMI result Body Mass Index 36.0 Const General: cooperative and ill appearing acutely HEENT Head: Yes normal to inspection Ears: hearing grossly normal bilaterally, external ears normal and TM's normal bilaterally General nose exam: Normal external nose present and Normal nasal mucous membranes and turbinates present Face and sinus: Yes normal facial exam Mouth: Normal oral and palatal mucosa present Throat: Yes posterior oropharynx abnormal (erythema) Neck Neck: Yes no lymphadenopathy Resp Effort & Inspection: normal respiratory effort and Actively coughing Quality: dry Auscultation: clear to auscultation bilaterally Cardio Rate: regular rate Rhythm: regular rhythm Skin General skin exam: no rashes or lesions noted Extrem General: Yes capillary refill normal and Yes no clubbing, cyanosis or edema Psych Appearance: grossly normal Mental Status: mental status grossly normal Speech and movement: Normal speech and movement present Results AMB Rapid Strep AMB Rapid Strep Negative Last Edit by EMMETT Paige on 06/19/24 11:11 Assessment & Plan Assessment & Plan (1) Pharyngitis: Code(s): J02.9 - Acute pharyngitis, unspecified Plan: Patient had positive exposure to strep, and is symptomatic with pharyngitis, body aches, chills, fever. Will treat with penicillin as ordered. We reviewed indications, use, possible side effects of this medication. Advised ongoing use of [id number] Tylenol/Motrin for symptom management, in addition to lozenges/drops, salt water gargles, increased hydration and rest. If patient does not improve with treatment, she can return to the clinic for further evaluation. All questions were answered and patient verbalizes understanding and agrees to plan. Medications: New penicillin V potassium 500 mg PO TID 10 days 30 tabs 0RF J02.0 - Streptococcal pharyngitis Coding Level of Care Code Est Pt Level 4 (53056) Diagnoses Pharyngitis J02.9
== END 2024-06-19 11:11 | disposition home or self-care (01) ==
PROVIDERS: PCP Internal Medicine; Visit Provider Nurse Practitioner Family
DX: Z13.9 Encounter for screening, unspecified (principal); J02.9 Acute pharyngitis, unspecified

== ENCOUNTER 2024-07-30 10:01 | Outpatient (REF) | payer OTHER, SELFPAY ==
--- NOTE | ~2024-07-30 | XR_ITS ---
EXAMINATION: XR KNEE, RIGHT CLINICAL INFORMATION: Right knee pain COMPARISON: None available. TECHNIQUE: AP and lateral views of the right knee. FINDINGS: There is no evidence of acute fracture or dislocation. The bones are unremarkable. Joint spaces appear to be preserved. No suprapatellar joint effusion. No dystrophic soft tissue calcifications. XR/XR knee RT 2V IMPRESSION: Unremarkable right knee radiographs. Electronically signed by: Danni Burt MD 07/30/2024 05:11 PM RE[facility]
== END 2024-07-30 10:02 | disposition home or self-care (01) ==
LOC: HO.HMGCX 10:01
PROVIDERS: PCP Internal Medicine; Visit Provider Internal Medicine
DX: M25.561 Pain in right knee (principal); D64.9 Anemia, unspecified; E78.5 Hyperlipidemia, unspecified
CPT/HCPCS: 73560; 96127; 99212

== ENCOUNTER 2024-07-30 10:01 | Outpatient (AMB) | payer OTHER, SELFPAY ==
--- NOTE | 2024-07-30 10:05 | MHC.PC.OV ---
Vital Signs 07/30/24 10:06 Height 5 ft 2 in Weight 168 lb BMI 30.7 BP 104/60 Blood Pressure Location Rt brachial Position Sitting Pulse 88 Pulse Source Pulse Oximeter Pulse Oximetry (%) 98 Oxygen Delivery Method Room Air Intake Visit Reasons: 6M F/U US Intake Note: Pt is here today for 6 months follow up visit. Allergies No Known Allergies Allergy (Verified 07/30/24 10:09) Medication List - Last Reconciled 07/30/24 by Liliana Cooper MD albuterol sulfate 90 mcg/actuation 2 puffs inhalation Q6H PRN ibuprofen 600 mg PO Q8H PRN levonorgestrel 0 device vaginal ONCE sumatriptan succinate (Imitrex) 50 mg PO Q2-4H PRN MDD 200 mg Tobacco use date assessed: 02/14/24 Dental Screening Dental Screen Date: 02/14/24 HPI 6M F/U US HPI Details Pt c/o R persistent R knee pain on and off for 4 years, worse when starting to walk after sitting for a while. Patient reports pain improved after stretching and exercising, sit-ups. Patient is concerned about asymmetry will mid lateral distal thigh question of swelling. She has been follow low-cholesterol diet and exercising regularly. [facility] Medical History History of abnormal cervical Pap smear URI (upper respiratory infection) Cough Symptomatic mammary hypertrophy Anxiety History of anxiety Migraine Anemia Surgical History No pertinent past surgical history Family History Mother Ovarian cancer Metastatic disease H/O colectomy Maternal Grandmother Heart disease CVD (cardiovascular disease) Diabetes mellitus Maternal Grandfather Hypertension Social History Housing: House Alcohol intake: current Alcohol intake frequency: holidays/special occasions only Alcohol type: other Patient Tobacco Use Status: Former Tobacco user e-Cigarette/Vaping Use: Never Used service: No Current occupational status: employed 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 1. Little interest or pleasure in doing things: not at all 2. Feeling down, depressed, or hopeless: not at all 3. Trouble falling or staying asleep, or sleeping too much: several days 4. Feeling tired or having little energy: not at all 5. Poor appetite or overeating: not at all 6. Feeling bad about yourself - or that you are a failure or have let yourself or your family down: not at all 7. Trouble concentrating on things, such as reading the newspaper or watching television: not at all 8. Moving or speaking so slowly that other people could have noticed. Or the opposite - being so fidgety or restless that you have been moving around a lot more than usual: not at all 9. Thoughts that you would be better off or of hurting yourself in some way: not at all Total score: 1 Depression Screening Interpretation: Negative Depression Screening Done: Yes 65620 - PHQ-9 Billing: Yes Source: Developed by Drs. James Coburn, Lorna Gallagher, Luis Norris and colleagues, with an educational hung from [employer]. Thrive Questionnaire Date Thrive assessed: 07/30/24 I am a: Patient What is your living situation today?: I have a steady place to live Within the past 12 months, did the food you bought not last and you didn't have the money to get more?: Never true Within the past 12 months, did you worry whether your food would run out before you got money to buy more?: Never true Do you have trouble paying for medicines?: No Do you have trouble getting transportation to medical appointments?: No Do you have trouble paying your heating and electricity bill?: No Do you have trouble taking care of your child, family member or friend?: No Do you have trouble with day-to-day activities such as bathing, preparing meals, shopping, managing finances, etc.?: No Are you currently unemployed and looking for a job?: No Are you interested in more education?: Yes Please select the resources that you would like help with: None Currently or been in a relationship where the following occur: No concerns reported THRIVE Score: 0 AUDIT C Alcohol Use Questionnaire (AUDIT-C) 1. How often do you have a drink containing alcohol?: Monthly or less 2. How many drinks containing alcohol do you have on a typical day when you are drinking?: 1 or 2 3. How often do you have six or more drinks on one occasion?: Never Total Score: 1 ROCIO-7 AMB Questionnaire ROCIO-7 Date ROCIO - 7 assessed: 02/14/24 Feeling nervous, anxious, or on edge: 1 = Several days Not being able to stop or control worryin = Several days Worrying too much about different things: 1 = Several days Trouble relaxin = Several days Being so restless that it is hard to sit still: 0 = Not at all Becoming easily annoyed or irritable: 1 = Several days Feeling afraid as if something awful might happen: 0 = Not at all Total ROCIO-7 score (0-4 normal; 5-9 mild; 10-14 moderate; 15-21 severe): 5 Source: Developed by Drs. James Coburn, Lorna Gallagher, Luis Norris and colleagues, with an educational hung from [employer]. ROCIO-7 Assessment Billing ROCIO-7 Assessment Tool: ROCIO-7 Assessment 36196 Review of Systems Const All systems reviewed & are unremarkable except as noted in HPI and below Eyes Reports no additional complaints ENT Reports no additional complaints Card Reports no additional complaints Resp Reports no additional complaints GI Reports no additional complaints Physical exam (Primary Care) Vital Signs: Last Vital Signs Pulse 88 07/30/24 10:06 BP 104/60 07/30/24 10:06 Pulse Ox 98 07/30/24 10:06 Oxygen Delivery Method Room Air 07/30/24 10:06 BMI result Body Mass Index 30.7 Tobacco/Smoking Status: Tobacco use Status Tobacco use date assessed 02/14/24 07/30/24 10:11 Patient Tobacco Use Status Former Tobacco user 07/30/24 10:11 e-Cigarette/Vaping Use Never Used 07/30/24 10:11 PHQ-9: PHQ-9 Score PHQ-9: Total score 1 07/30/24 10:11 Depression Screening Interpretation: Negative Thrive Assessment: Date of Thrive Assessment Date Thrive assessed 07/30/24 07/30/24 10:11 Currently or been in a relationship where the following occur: No concerns reported Const General: no acute distress Resp Effort & Inspection: normal respiratory effort Auscultation: clear to auscultation bilaterally Cardio Rhythm: regular rhythm Heart sounds: S1 normal heart sound present and S2 normal heart sound present Extrem Other: Right knee has full range of motion no focal tenderness right lateral thigh no soft tissue swelling, tenderness, erythema or warmth Coding Level of Care Code Est Pt Level 4 (35470) Diagnoses Knee pain, right M25.561 Anemia D64.9 Hyperlipidemia E78.5 Additional Codes ROCIO-7 Assessment Billing - ROCIO-7 Assessment Tool: ROCIO-7 Assessment 96519 ([id number]) PHQ-9 - 45831 - PHQ-9 Billing: Yes ([id number]) Assessment & Plan Assessment & Plan (1) Knee pain, right: Code(s): M25.561 - Pain in right knee Category: Medical Plan: For chronic right knee pain check x-ray and referred to physical therapy (2) Anemia: Code(s): D64.9 - Anemia, unspecified Category: Medical Plan: Check CBC and iron studies (3) Hyperlipidemia: Code(s): E78.5 - Hyperlipidemia, unspecified Category: Medical Plan: Continue low-cholesterol diet ,patient will return for fasting blood work and will follow-up in 6 months for physical Orders: Orders PT Evaluation and Treatment Today M25.561 - Pain in right knee Comprehensive [place]. Panel Fast 6 Months D64.9 - Anemia, unspecified, E78.5 - Hyperlipidemia, unspecified TSH reflex Free T4 6 Months D64.9 - Anemia, unspecified, E78.5 - Hyperlipidemia, unspecified Vitamin B12 and Folate 6 Months D64.9 - Anemia, unspecified, E78.5 - Hyperlipidemia, unspecified Lipid Panel Today E78.5 - Hyperlipidemia, unspecified XR knee RT 2V Today M25.561 - Pain in right knee Complete Blood Count Auto Diff 6 Months D64.9 - Anemia, unspecified, E78.5 - Hyperlipidemia, unspecified Lipid Panel 6 Months D64.9 - Anemia, unspecified, E78.5 - Hyperlipidemia, unspecified UA w Microscopic 6 Months D64.9 - Anemia, unspecified, E78.5 - Hyperlipidemia, unspecified IRON PROFILE 6 Months D64.9 - Anemia, unspecified, E78.5 - Hyperlipidemia, unspecified Complete Blood Count Auto Diff Today D64.9 - Anemia, unspecified IRON PROFILE Today D64.9 - Anemia, unspecified
[2024-07-30 10:06] VITALS: BP 104/60; PULSE 88; O2SAT 98; BMI 30.7
== END 2024-07-30 10:45 | disposition home or self-care (01) ==
LOC: HO.HMCC 10:02
PROVIDERS: PCP Internal Medicine; Visit Provider Internal Medicine
DX: M25.561 Pain in right knee (principal); D64.9 Anemia, unspecified; E78.5 Hyperlipidemia, unspecified

== ENCOUNTER 2024-10-08 08:43 | Outpatient (AMB) | payer OTHER, SELFPAY ==
--- NOTE | 2024-10-08 09:08 | AM.OFFWIN_ITS ---
Intake Vital Signs 10/08/24 09:09 Height 5 ft 2 in Weight 170 lb BMI 31.1 BP 108/66 Blood Pressure Location Rt brachial Position Sitting Pulse 87 Pulse Source Pulse Oximeter Temp 98.1 F Temp Source Oral Pulse Oximetry (%) 100 Oxygen Delivery Method Room Air Intake Visit Reasons: EP-lt ear infection, migraine Intake Note: Pt is here today for a walk in visit. Pt c/o L ear pain and headache. Patient Tobacco Use Status: Former Tobacco user Allergies No Known Allergies Allergy (Verified 10/08/24 09:10) HPI HPI Comments History of Present Illness Details History - The patient is a 34-year-old female pr esenting with acute left ear pain and persistent migraines. - She has a history of recurrent migrain es managed with sumatriptan, which usually provides relief but has been ineffective in this episode lasting five days. - Patient reports left ear pain over the past two days, exacerbated by mastication. - No history of frequent ear infections; denies fever, hearing changes, or swollen lymph nodes. - Patient mentions a single instance of diarrhea today, potentially linked as a migraine symptom. Physical Exam General: Cooperative, healthy appearing, comfortable and no acute distress Orientation/consciousness: Patient oriented x3 Limitations: No limitations Head: Normal to inspection Ears: External ears normal, eAC right normal, eac left erythema and edema Nose: Normal external nose present, Normal nares present and No nasal discharge present Face and sinus: Normal facial exam Mouth: Normal oral and palatal mucosa present and moist mucous membranes Throat: Yes tonsils normal, Yes uvula midline. Posterior oropharynx erythema Eyes: Appearance normal, both eyes and all related structures Neck: Normal visual inspection, no lymphadenopathy Respiratory: Normal respiratory effort, able to speak in complete sentences, Actively coughing, no respiratory distress, not tachypneic, no tripod positioning and no use of accessory muscles Skin: No rashes or lesions noted Neuro: Patient oriented x3 Extremities: Normal to inspection and Yes no clubbing, cyanosis or edema PFSH Medical History History of abnormal cervical Pap smear URI (upper respiratory infection) Cough Symptomatic mammary hypertrophy Anxiety History of anxiety Migraine Anemia Surgical History No pertinent past surgical history Family History Mother Ovarian cancer Metastatic disease H/O colectomy Maternal Grandmother Heart disease CVD (cardiovascular disease) Diabetes mellitus Maternal Grandfather Hypertension Social History Housing: House Alcohol intake: current Alcohol intake frequency: holidays/special occasions only Alcohol type: other Patient Tobacco Use Status: Former Tobacco user e-Cigarette/Vaping Use: Never Used service: No Current occupational status: employed 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 Sexual orientation: Straight/Heterosexual Gender identity: Female Cognitive needs: No Hearing needs: No Vision needs: No Female Reproductive History Menstrual Age of Menarche: 13 Review of Systems Const All systems reviewed & are unremarkable except as noted in HPI and below Physical Exam Vital Signs: Last Vital Signs Temp 98.1 F 10/08/24 09:09 Pulse 87 10/08/24 09:09 BP 108/66 10/08/24 09:09 Pulse Ox 100 10/08/24 09:09 Oxygen Delivery Method Room Air 10/08/24 09:09 BMI result Body Mass Index 31.1 Assessment & Plan Assessment & Plan (1) Otitis externa: Code(s): H60.90 - Unspecified otitis externa, unspecified ear Qualifiers: Chronicity: acute Laterality: left Otitis externa type: other infective Qualified Code(s): H60.392 - Other infective otitis externa, left ear Plan: The plan is to address otitis externa with antibiotic and steroid ear drops for seven days, as prescribed four times daily, with the expectation of reducing inflammation and alleviating symptoms. The drops are to be picked up at the specified pharmacy location. In addressing the migraine symptoms, which include diarrhea, supportive care with hydration and rest is recommended, given the report of prodromal symptoms suggesting a possible viral component. The patient will receive a work note to ease recovery at home. If symptoms worsen, further evaluation and testing will be considered. Patient was informed and verbally consented to the use of an ambient scribe for clinic note documentation during this visit Medications: New viynnxqs-vleljgagz-HJ 3.5-10,000-1 mg/mL-unit/mL-% 4 drps otic (ear) left QID 7 days 10 mL 0RF Coding Level of Care Code Est Pt Level 3 (49964) Diagnoses Other infective acute otitis externa of left ear H60.392 Chronicity: acute Laterality: left Otitis externa type: other infective
[2024-10-08 09:09] VITALS: BP 108/66; PULSE 87; TEMP 36.7; O2SAT 100; BMI 31.1
== END 2024-10-08 09:30 | disposition home or self-care (01) ==
PROVIDERS: PCP Internal Medicine; Visit Provider Physician Assistant
DX: H60.392 Other infective otitis externa, left ear (principal)

== ENCOUNTER → 2024-10-08 08:43 | Outpatient (BNVA) | payer OTHER, SELFPAY | PROVIDERS: PCP Internal Medicine; Visit Provider Physician Assistant | DX: H60.392 Other infective otitis externa, left ear (principal) | CPT/HCPCS: 99212 ==

== ENCOUNTER 2025-03-18 08:37 | Outpatient (REF) | payer OTHER, SELFPAY ==
[2025-03-18 10:16] LABS: MANUAL DIFF FLAG NO
[2025-03-18 10:33] LABS: Basophils Absolute Auto 0.1 X10*3/uL (0.0-0.2); Basophils Percent Auto 0.9 % (0-2); Eosinophils Absolute Auto 0.1 X10*3/uL (0.0-0.4); Eosinophils Percent Auto 1.9 % (0-4); Hematocrit 36.7 % (37.0-47.0); Hemoglobin 12.2 g/dl (12.0-16.0); Imm Gran Abs Auto 0.02 X10*3/uL (0.00-0.03); Imm Gran Pct Auto 0.4 % (0.0-0.4); Lymphocytes Absolute Auto 1.3 X10*3/uL (1.2-4.9); Lymphocytes Percent Auto 24.9 % (20-40); Mean Corpuscular HGB Conc 33.2 g/dl (31.0-35.0); Mean Corpuscular Hemoglobin 30.5 pg (27.0-33.0); Mean Corpuscular Volume 91.8 fL (80.0-98.0); Mean Platelet Volume 11.2 fL (9.4-12.3); Monocytes Absolute Auto 0.5 X10*3/uL (0.1-1.2); Monocytes Percent Auto 9.9 % (2-11); Neutrophils Absolute Auto 3.3 x10*3/uL (2.0-8.3); Platelet Count 221 X10*3/uL (160-400); Red Cell Distribution Width 11.9 % (11.0-16.0); White Blood Count 5.4 X10*3/uL (4.8-10.8)
[2025-03-18 10:52] LABS: Appearance Urine Clear; Color Urine Yellow; Glucose Urine UA Negative (Negative); Leukocyte Esterase Urine Negative (Negative); Nitrite Urine Negative (Negative); PH 8.5 (5.0-9.0); Specific Gravity - Urine 1.015 (1.005-1.025); Urine Blood Negative (Negative); Urine Ketones Negative (Negative); Urine Protein Negative (Neg-Trace)
[2025-03-18 10:57] LABS: Bacteria Urine None Seen (None Seen); Hyaline Casts Urine 0-2 /LPF (0-2); RBC Urine 0-2 /HPF (0-2); Squamous Epithelial Cell Urine 0-2 /HPF (0-2); WBC Urine 0-5 /HPF (0-5)
[2025-03-18 11:29] LABS: Alanine Aminotransferase 23 U/L (0-31); Albumin Level 4.7 g/dL (3.5-5.0); Alkaline Phosphatase 40 U/L (39-117); Anion Gap 10 (12-20); Aspartate Amino Transferase 21 U/L (5-31); Bilirubin Total 0.4 mg/dL (0.0-1.0); Blood Urea Nitrogen 14 mg/dL (9-16); Calcium 9.4 mg/dL (8.4-10.2); Carbon Dioxide 25 mmol/L (22-29); Chloride 108 mmol/L (96-108); Cholesterol 227 mg/dL (<200); Estimated Glomerular Filt Rate > 60; Glucose Fasting 78 mg/dL (60-99); HDL Cholesterol 52 mg/dL (>40); Iron 96 mcg/dL (30-160); LDL Cholesterol Calculated 157 mg/dL (<100); Percent Iron Saturation 34 % (15-50); Sodium 139 mmol/L (135-145); TSH reflex Free T4 0.89 uIU/mL (0.32-4.0); Total Iron Binding Capacity 281 mcg/dL (228-428); Total Protein 7.3 g/dL (6.5-8.0); Triglycerides 90 mg/dL (<150); Unsaturated Iron Binding 185 ug/dL
[2025-03-18 11:46] LABS: Folate 8.5 ng/mL (> or = 4.0); Vitamin B12 430 pg/mL (200-900)
[2025-03-19 13:43] LABS: Hemoglobin 12.2 g/dL (11.7-15.5); MCH 30.7 pg (27.0-33.0); MCV 95.7 fL (80.0-100.0); RBC 3.97 Million/uL (3.80-5.10); RDW 11.5 % (11.0-15.0)
== END 2025-03-18 08:38 | disposition home or self-care (01) ==
LOC: HO.HMGCLDS 08:37
PROVIDERS: PCP Internal Medicine; Visit Provider Internal Medicine
DX: Z00.00 Encounter for general adult medical examination without abnormal findings (principal); E78.5 Hyperlipidemia, unspecified; D64.9 Anemia, unspecified; Z13.30 Encounter for screening examination for mental health and behavioral disorders, unspecified; Z13.31 Encounter for screening for depression
CPT/HCPCS: 36415; 80053; 80061; 81001; 82607; 82746; 83020; 83540; 84443; 85014; 85018; 85025; 85041; 96127; 99395

== ENCOUNTER 2025-03-18 08:37 | Outpatient (AMB) | payer OTHER, SELFPAY ==
[2025-03-18 08:39] VITALS: BP 104/72; PULSE 102; RESP 18; TEMP 36.8; O2SAT 97; BMI 31.1
--- NOTE | 2025-03-18 08:39 | A.OFFPC_ITS ---
Vital Signs 03/18/25 08:39 Height 5 ft 2 in Weight 170 lb BMI 31.1 BP 104/72 Blood Pressure Location Lt brachial Position Sitting Respiration 18 Pulse 102 H Pulse Source Pulse Oximeter Temp 98.2 F Temp Source Oral Pulse Oximetry (%) 97 Oxygen Delivery Method Room Air Intake Visit Reasons: Annual PE Intake Note: Pt is here today for PE. Allergies No Known Allergies Allergy (Verified 03/18/25 08:41) Medication List - Last Reconciled 03/18/25 by Liliana Cooper MD albuterol sulfate 90 mcg/actuation 2 puffs inhalation Q6H PRN hydroxyzine HCl 10 mg PO ONCE ibuprofen 600 mg PO Q8H PRN levonorgestrel 0 device vaginal ONCE sumatriptan succinate (Imitrex) 50 mg PO Q2-4H PRN MDD 200 mg Tobacco use date assessed: 03/18/25 Dental Screening Dental Screen Date: 03/18/25 Did you have a dental visit in the last 12 months?: Yes Did you have a dental problem in the last 6 months where you did not have access to dental care?: No Was dental information given to patient?: Patient has dentist HPI Annual PE HPI Details Patient presents for physical PFSH Medical History (Updated 03/18/25 @ 14:44 by Liliana Cooper MD) History of abnormal cervical Pap smear URI (upper respiratory infection) Cough Symptomatic mammary hypertrophy Anxiety History of anxiety Migraine Anemia Surgical History No pertinent past surgical history Family History Mother Ovarian cancer Metastatic disease H/O colectomy Maternal Grandmother Heart disease CVD (cardiovascular disease) Diabetes mellitus Maternal Grandfather Hypertension Social History Housing: House Alcohol intake: current Alcohol intake frequency: holidays/special occasions only Alcohol type: other Patient Tobacco Use Status: Current everyday Tobacco user Cigarettes Per Day: 2 e-Cigarette/Vaping Use: Never Used service: No Current occupational status: employed 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 1. Little interest or pleasure in doing things: several days 2. Feeling down, depressed, or hopeless: several days 3. Trouble falling or staying asleep, or sleeping too much: not at all 4. Feeling tired or having little energy: several days 5. Poor appetite or overeating: several days 6. Feeling bad about yourself - or that you are a failure or have let yourself or your family down: not at all 7. Trouble concentrating on things, such as reading the newspaper or watching television: not at all 8. Moving or speaking so slowly that other people could have noticed. Or the opposite - being so fidgety or restless that you have been moving around a lot more than usual: not at all 9. Thoughts that you would be better off or of hurting yourself in some way: not at all Total score: 4 Depression Screening Interpretation: Negative Depression Screening Done: Yes 11281 - PHQ-9 Billing: Yes Source: Developed by Drs. James Coburn, Lorna Gallagher, Luis Norris and colleagues, with an educational hung from [employer] Thrive Questionnaire Date Thrive assessed: 07/30/24 I am a: Patient What is your living situation today?: I have a steady place to live Within the past 12 months, did the food you bought not last and you didn't have the money to get more?: Never true Within the past 12 months, did you worry whether your food would run out before you got money to buy more?: Never true Do you have trouble paying for medicines?: No Do you have trouble getting transportation to medical appointments?: No Do you have trouble paying your heating and electricity bill?: No Do you have trouble taking care of your child, family member or friend?: No Do you have trouble with day-to-day activities such as bathing, preparing meals, shopping, managing finances, etc.?: No Are you currently unemployed and looking for a job?: No Are you interested in more education?: No Please select the resources that you would like help with: None Currently or been in a relationship where the following occur: No concerns reported THRIVE Score: 0 AUDIT C Alcohol Use Questionnaire (AUDIT-C) 1. How often do you have a drink containing alcohol?: Monthly or less 2. How many drinks containing alcohol do you have on a typical day when you are drinking?: 1 or 2 3. How often do you have six or more drinks on one occasion?: Never Total Score: 1 ROCIO-7 AMB Questionnaire ROCIO-7 Date ROCIO - 7 assessed: 03/18/25 Feeling nervous, anxious, or on edge: 0 = Not at all Not being able to stop or control worryin = Not at all Worrying too much about different things: 0 = Not at all Trouble relaxin = Not at all Being so restless that it is hard to sit still: 0 = Not at all Becoming easily annoyed or irritable: 1 = Several days Feeling afraid as if something awful might happen: 0 = Not at all Total ROCIO-7 score (0-4 normal; 5-9 mild; 10-14 moderate; 15-21 severe): 1 Source: Developed by Drs. James Coburn, Lorna Gallagher, Luis Norris and colleagues, with an educational hung from [employer] ROCIO-7 Assessment Billing ROCIO-7 Assessment Tool: ROCIO-7 Assessment 94079 Review of Systems Const All systems reviewed & are unremarkable except as noted in HPI and below Eyes Reports no additional complaints ENT Reports no additional complaints Card Reports no additional complaints Resp Reports no additional complaints GI Reports no additional complaints Reports no additional complaints Physical exam (Primary Care) Vital Signs: Last Vital Signs Temp 98.2 F 03/18/25 08:39 Pulse 102 H 03/18/25 08:39 Resp 18 03/18/25 08:39 BP 104/72 03/18/25 08:39 Pulse Ox 97 03/18/25 08:39 Oxygen Delivery Method Room Air 03/18/25 08:39 BMI result Body Mass Index 31.1 Tobacco/Smoking Status: Tobacco use Status Tobacco use date assessed 03/18/25 03/18/25 08:46 Patient Tobacco Use Status Current everyday Tobacco 03/18/25 08:46 e-Cigarette/Vaping Use Never Used 03/18/25 08:46 PHQ-9: PHQ-9 Score PHQ-9: Total score 4 03/18/25 10:44 Depression Screening Interpretation: Negative Thrive Assessment: Date of Thrive Assessment Date Thrive assessed 07/30/24 03/18/25 08:46 Currently or been in a relationship where the following occur: No concerns reported Const General: no acute distress HENMT Head: Yes normal to inspection Face and sinus: Yes normal facial exam Throat: Yes posterior oropharynx normal Eyes General: appearance normal, both eyes and all related structures Neck Neck: Yes no lymphadenopathy and Yes supple Resp Effort & Inspection: normal respiratory effort Auscultation: clear to auscultation bilaterally Cardio Rhythm: regular rhythm Heart sounds: S1 normal heart sound present and S2 normal heart sound present GI Inspection: Yes normal to inspection Palpation (GI): Soft to palpation Percussion: Yes normal to percussion Auscultation: normal bowel sounds Coding Level of Care Code Est Pt Prev Care 18-39y(25683) Diagnoses Annual physical exam Z00.00 Hyperlipidemia E78.5 Additional Codes ROCIO-7 Assessment Billing - ROCIO-7 Assessment Tool: ROCIO-7 Assessment 54805 ([id number]) PHQ-9 - 99540 - PHQ-9 Billing: Yes ([id number]) Assessment & Plan Assessment & Plan (1) Annual physical exam: Code(s): Z00.00 - Encounter for general adult medical examination without abnormal findings Category: Medical Plan: Well-balanced diet regular physical activity discussed with the patient. She is up-to-date with Pap smear by hearing stenographer (2) Hyperlipidemia: Code(s): E78.5 - Hyperlipidemia, unspecified Category: Medical Plan: Low-cholesterol diet increase physical activity discussed with the patient. She will have a fasting blood work today Orders: Orders Vitamin B12 and Folate Today D64.9 - Anemia, unspecified, E78.5 - Hyperlipidemia, unspecified, Z00.00 - Encounter for general adult medical examination without abnormal findings Hemoglobin Electrophoresis Today D64.9 - Anemia, unspecified, E78.5 - Hyperlipidemia, unspecified, Z00.00 - Encounter for general adult medical examination without abnormal findings Comprehensive [place]. Panel Fast Today D64.9 - Anemia, unspecified, E78.5 - Hyperlipidemia, unspecified, Z00.00 - Encounter for general adult medical examination without abnormal findings Complete Blood Count Auto Diff Today D64.9 - Anemia, unspecified, E78.5 - Hyperlipidemia, unspecified, Z00.00 - Encounter for general adult medical examination without abnormal findings Lipid Panel Today D64.9 - Anemia, unspecified, E78.5 - Hyperlipidemia, unspecified, Z00.00 - Encounter for general adult medical examination without abnormal findings TSH reflex Free T4 Today D64.9 - Anemia, unspecified, E78.5 - Hyperlipidemia, unspecified, Z00.00 - Encounter for general adult medical examination without abnormal findings Medications: Refilled sumatriptan succinate (Imitrex) 50 mg PO Q2-4H PRN 20 tabs 1RF migraine headache MDD 200 mg
--- OUTSIDE RECORDS SUMMARY | 2025-03-18 09:02 | XMS_ITS | Encounter Summary ---
Author Organization [facility] Address [address] [place] [address] Phone Care Team Providers Care Manager Dialysis Name Role Phone Colleen Valdivia DO Primary Care Provider [phone] Encounter Details Date Type Department Care Team (Late st Contact Info) Description 05/10/2017 Conversion Encounter [facility] [place] [address] [place] [address] Social History Tobacco Use Types Packs/Day Years Used Date Smoking Tobacco: Never Assessed Comments Unknown Sex and Gender Information Value Date Recorded Sex Assigned at Not on file Legal Sex Female 4:32 PM EDT Gender Identity Not on file Sexual Orientation Not on file documented as of this encounter Plan of Treatment Not on file documented as of this encounter Visit Diagnoses Not on filedocumented in this encounter Care Teams Manager Dialysis Relationship Specialty Start Date End Date Colleen Valdivia DO [address] [place] [address] PCP - General 05/04/17 01/04/23 documented as of this encounter
== END 2025-03-18 09:33 | disposition home or self-care (01) ==
LOC: HO.HMCC 08:38
PROVIDERS: PCP Internal Medicine; Visit Provider Internal Medicine
DX: Z00.00 Encounter for general adult medical examination without abnormal findings (principal); E78.5 Hyperlipidemia, unspecified

== ENCOUNTER 2025-03-19 09:00 | Outpatient (AMB) | payer OTHER, SELFPAY ==
--- NOTE | 2025-03-19 09:02 | MHC.OFFVIS ---
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 History of ovarian cyst. Starting to have menses this year with her Mirena, inserted 05/2020. Currently is sexually active. She denies vaginal itching or irritation. STI screening offered; she accepts. She tries to eat healthy and stays active with exercise. Denies family history of breast or colon cancer. FH ovarian cancer. Last pap smear 2020, negative. History of LSGIL 2013. [facility] Medical History Breast mass, right History of abnormal cervical Pap smear URI (upper respiratory infection) Cough Symptomatic mammary hypertrophy Anxiety History of anxiety Migraine Anemia Surgical History No pertinent past surgical history Family History Mother Ovarian cancer Metastatic disease H/O colectomy Maternal Grandmother Heart disease CVD (cardiovascular disease) Diabetes mellitus Maternal Grandfather Hypertension Social History Housing: House Alcohol intake: current Alcohol intake frequency: holidays/special occasions only Alcohol type: other Patient Tobacco Use Status: Current everyday Tobacco user Cigarettes Per Day: 2 e-Cigarette/Vaping Use: Never Used service: No Current occupational status: employed 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 Sexual orientation: Straight/Heterosexual Gender identity: Female Cognitive needs: No Hearing needs: No Vision needs: No Female Reproductive History Menstrual Age of Menarche: 13 Date of last menstrual period: 02/26/25 control method: progestin IUCD (Mirena 06/07/20) Total pregnancies: 2 Full term: 2 Number of Living Children: 2 Date of last pap smear: 10/14/20 (neg pap and hpv) History of abnormal pap smear: Yes (see intake note) Review of Systems Const All systems reviewed & are unremarkable except as noted in HPI and below Reports as per HPI Eyes Reports no additional complaints ENT Reports no additional complaints Card Reports no additional complaints Resp Reports no additional complaints GI Reports as per HPI and Reports no additional complaints Reports as per HPI Musc Reports no additional complaints Skin/Breast Reports as per HPI Neuro Reports no additional complaints Psych Reports no additional complaints Endo Reports no additional complaints Jack/Lymph Reports no additional complaints Aller/Immun Reports no additional complaints Physical Exam Vital Signs: Last Vital Signs BP 120/82 03/19/25 09:04 BMI result Body Mass Index 31.1 Const General: cooperative, healthy appearing, no acute distress, well developed and alert Orientation/consciousness: patient oriented x3 HEENT Head: Yes normal to inspection Eyes General: appearance normal, both eyes and all related structures Neck Neck: Yes normal visual inspection Thyroid: Thyroid normal Chest Other: Right breast mass 12:00 deeply positioned nontender. Inverted right nipple (patient reports since development) Chest palpation & inspection: normal inspection of the chest and other (no puckering, dimpling, peau de orange, retraction, discharge, masses) Breast/axilla inspection: normal inspection of the breasts Breast/axilla palpation: normal palpation of the breasts Resp Effort & Inspection: normal respiratory effort GI Inspection: Yes normal to inspection Palpation (GI): Soft to palpation Rectal Exam - Female: deferred General: Yes bladder normal to palpation External Female Exam: normal external appearance and normal appearance of the urethra Speculum Exam - Vagina: normal appearance of the vagina, normal palpation and normal vaginal discharge Speculum Exam - Cervix: normal appearance of the cervix, normal palpation and Other cervical findings present (IUD strings at the os) Bimanual exam- vagina & uterus: normal bimanual exam, normal palpation, uterine size normal, bladder normal to palpation, normal palpation and non-tender Bimanual Exam- Adnexa, other: no masses Skin General skin exam: no rashes or lesions noted Rashes: no rashes Neuro General: patient oriented x3 Cognition (Neuro): normal cognition Extrem General: Yes normal to inspection Psych Attitude: cooperative Thought process: Normal thought process present Results AMB Test Urine AMB Test Urine Negative Last Edit by Vandana Mancilla Jose Antonio on 03/19/25 09:17 AMB Urinalysis, Automated UA Leukoctes 0 Amanda/uL Last Edit by Vandana Mancilla [facility] on 03/19/25 09:17 UA Nitrite Negative Last Edit by Vandana Mancilla [facility] on 03/19/25 09:17 UA Urobilinogen 0 mg/dL Last Edit by Vandana Mancilla [facility] on 03/19/25 09:17 UA Protein 0 mg/dL Last Edit by Vandana Mancilla [facility] on 03/19/25 09:17 UA pH 7.5 Last Edit by Vandana Mancilla [facility] on 03/19/25 09:17 UA Blood 0 Rc/uL Last Edit by Vandana Mancilla [facility] on 03/19/25 09:17 UA Specific Cameron 1.010 Last Edit by Vandana Mancilla [facility] on 03/19/25 09:17 UA Ketone Negative Last Edit by Vandana Mancilla [facility] on 03/19/25 09:17 UA Bilirubin 0 mg/dL Last Edit by Vandana Mancilla [facility] on 03/19/25 09:17 UA Glucose 0 mg/dL Last Edit by Vandana Mancilla [facility] on 03/19/25 09:17 Results Reviewed Results Reviewed: Laboratory Last Values Urine pH (Auto) 7.5 03/19/25 09:16 Specific Cameron (Auto) 1.010 03/19/25 09:16 Urine Protein (Auto) 0 mg/dL 03/19/25 09:16 Glucose (UA)(Auto) 0 mg/dL 03/19/25 09:16 Urine Ketones (Auto) Negative 03/19/25 09:16 Urine Blood (Auto) 0 Rc/uL 03/19/25 09:16 Urine Nitrite (Auto) Negative 03/19/25 09:16 Urine Bilirubin (Auto) 0 mg/dL 03/19/25 09:16 Urine Urobilinogen (Auto) 0 mg/dL 03/19/25 09:16 Leukocyte Esterase (Auto) 0 Amanda/uL 03/19/25 09:16 Tst Clinic Negative 03/19/25 09:16 Assessment & Plan Assessment & Plan (1) Pain in pelvis: Code(s): R10.2 - Pelvic and perineal pain Plan: Workup for pelvic pain to include pelvic ultrasound, cervical cultures, UPT negative, urinalysis negative. Await results for final plan of care follow up in person for test results. The patient expressed understanding and agreement with the plan of care. All of her questions and concerns were addressed to the best of my ability. (2) Breast mass, right: Code(s): N63.10 - Unspecified lump in the right breast, unspecified quadrant Category: Medical Qualifiers: Breast mass location: unspecified quadrant Qualified Code(s): N63.10 - Unspecified lump in the right breast, unspecified quadrant Plan: Workup for breast lump-ultrasound and diagnostic mammogram follow up pending results. The patient expressed understanding and agreement with the plan of care. All of her questions and concerns were addressed to the best of my ability. Total time I personally spent on visit and management today: ?20 minutes. Time spent included review of pertinent office notes in the electronic health record; review of laboratory and imaging results; review of personal family medical history; performing physical exam; discussing diagnosis and plan of care with the patient; documenting the encounter in the EMR. (3) Well woman exam with routine gynecological exam: Code(s): Z01.419 - Encounter for gynecological examination (general) (routine) without abnormal findings Category: Medical Plan Discussed: Current recommendations for pap smears per ASCCP guidelines. Pap obtained. Breast awareness and periodic breast exams. Maintain a healthy lifestyle including a well balanced diet and routine exercise. Patient verbalizes understanding and agrees to the plan of care. She was given opportunity to ask questions and all questions were answered to the best of my ability. 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 This note is constructed using voice recognition software. While every effort has been made to ensure accuracy, electrolytic etcher errors may have been included. Orders: Orders US pelvic and transvaginal Today R10.2 - Pelvic and perineal pain MM tomosynthesis diagnostic BI Today N63.10 - Unspecified lump in the right breast, unspecified quadrant, Z12.31 - Encounter for screening mammogram for malignant neoplasm of breast Bacterial Vaginosis Panel Today R10.2 - Pelvic and perineal pain AMB HCG Urine Test Today R10.2 - Pelvic and perineal pain AMB Urinalysis Automated Today R10.2 - Pelvic and perineal pain US breast RT limited Today N63.10 - Unspecified lump in the right breast, unspecified quadrant CT NG by PCR Vag/Cerv Today R10.2 - Pelvic and perineal pain HPV High risk Today Z01.419 - Encounter for gynecological examination (general) (routine) without abnormal findings Pap Smear Today Z01.419 - Encounter for gynecological examination (general) (routine) without abnormal findings Coding Level of Care Code Est Pt Level 2 (37305) Est Pt Prev Care 18-39y(43174) Diagnoses Pain in pelvis R10.2 Mass of right breast, unspecified quadrant N63.10 Breast mass location: unspecified quadrant Well woman exam with routine gynecological exam Z01.419
[2025-03-19 09:04] VITALS: BP 120/82; BMI 31.1
== END 2025-03-19 09:55 | disposition home or self-care (01) ==
LOC: HO.HWS 09:00
PROVIDERS: PCP Internal Medicine; Visit Provider Advanced Practice Midwife
DX: R10.2 Pelvic and perineal pain (principal); N63.10 Unspecified lump in the right breast, unspecified quadrant; Z01.419 Encounter for gynecological examination (general) (routine) without abnormal findings
CPT/HCPCS: 99212; 99395; 99459

== ENCOUNTER 2025-03-19 09:00 | Outpatient (REF) | payer OTHER, SELFPAY ==
[2025-03-19 18:25] LABS: Bacterial Vaginosis PCR NEGATIVE (Negative); Candida Group PCR NOT DETECTED (Not Detect); Candida glab krusei PCR NOT DETECTED (Not Detect); Trichomonas vaginalis PCR NOT DETECTED (Not Detect)
[2025-03-19 18:58] LABS: CT PCR NOT DETECTED (Not Detect.); NG PCR NOT DETECTED (Not Detect.)
== END 2025-03-19 09:01 | disposition home or self-care (01) ==
LOC: HO.LAB 09:00
PROVIDERS: PCP Internal Medicine; Visit Provider Advanced Practice Midwife
DX: Z01.419 Encounter for gynecological examination (general) (routine) without abnormal findings (principal); R10.2 Pelvic and perineal pain
CPT/HCPCS: 81003; 81025; 81515; 87491; 87591; 99212; 99395

== ENCOUNTER 2025-03-19 09:37 | Outpatient (REF) | payer OTHER, SELFPAY ==
[2025-03-24 14:08] LABS: HPV Genotype 16 Negative (Negative); HPV Genotype 18 Negative (Negative); HPV High Risk Negative (Negative)
== END 2025-03-19 09:38 | disposition home or self-care (01) ==
LOC: HO.LNP 09:37
PROVIDERS: Visit Provider Advanced Practice Midwife
DX: Z01.419 Encounter for gynecological examination (general) (routine) without abnormal findings (principal)
CPT/HCPCS: 87626; 88175

== ENCOUNTER 2025-04-09 12:22 | Outpatient (REF) | payer OTHER, SELFPAY ==
--- NOTE | ~2025-04-09 | US_ITS ---
EXAMINATION: MM DIAGNOSTIC DIGITAL BREAST TOMOSYNTHESIS, BILATERAL Bilateral Limited ultrasound. CLINICAL INFORMATION: 44-year-old female with right breast pain upper central breast. COMPARISON: Mammography: Baseline mammogram. TECHNIQUE: Digital breast mammography with tomosynthesis is performed in both the craniocaudal and mediolateral oblique views along with computer-aided detection (CAD). FINDINGS: The breasts are heterogeneously dense, which may obscure small masses (ACR BI-RADS breast composition Category c). Right: Salome marker at the site of patient's pain in the upper central breast without underlying abnormal finding. No suspicious calcifications or other abnormal findings. Targeted color Doppler ultrasound scanning in the area the patient's pain upper central breast 10-2 o'clock demonstrates normal fibroglandular breast tissue. There is no sonographic abnormal finding to account for the patient's right breast pain. Left: Oval mass versus normal dense patch of fibronodular breast tissue in the central outer upper outer breast middle depth. No suspicious calcifications or other abnormal findings. Targeted color Doppler ultrasound scanning in the left breast 11 4:00 demonstrates normal fibroglandular breast tissue. No sonographic abnormal finding. Results are discussed with the patient at time of visit. US/US breast BI limited mamm only IMPRESSION: Left: No mammographic or sonographic abnormal finding. Negative. Right: No mammographic or sonographic abnormal finding to account for the patient's right breast pain. Recommend clinical evaluation and follow-up. Patient has family history mom with ovarian cancer and dense breast tissue. Breast MRI may be considered if clinically indicated. Breast MRI would need to be ordered by the patient's providing clinician. ASSESSMENT: BI-RADS BI-RADS 1 - Negative RECOMMENDATION: Mammo at 40 or earlier if clinically needed Clinical evaluation follow-up. Electronically signed by: Jihan Ocampo DO 04/09/2025 01:55 PM EDT
--- OUTSIDE RECORDS SUMMARY | 2025-04-09 12:53 | XMS_ITS | Encounter Summary ---
Author Organization [facility] Address [address] [place] [address] Care Team Providers Care Food And Beverage Lead Name Role Phone Yahaira Arteaga DO Primary Care Pro vider Unavailable Jordy Saleem Primary Care Provider Unavailabl e Reason for Visit * Reason Onset Date Comments Provider Call Back 01/22/2015 Encounter Details Date Type Department Care Team Description 01/22/2015 Telephone Adult Medicine [address] [address] Yahaira Arteaga DO Provider Call Back Social History Tobacco Use Types Packs/Day Years Used Date Smoking Tobacco: Never Smokeless Tobacco: Never Alcohol Use Standard Drinks/Week Comments Yes 0 (1 standard drink = 0.6 oz pur e alcohol) socially Sex Assigned at Date Recorded Not on file documented as of this encounter Miscellaneous Notes * Telephone Encounter - Mary Pryor M.A. - 01/22/2015 3:53 PM EDT Notes given to Priya aguila appt. * Telephone Encounter - Priya Dawkins R.N. - 01/22/2015 1:46 PM EDT Pt needs [facility] ed f/u for anxiety, was seen after an anxiety attack, was given small amount of meds ,needs to f/u * Telephone Encounter - Loren Ramirez - 01/22/2015 1:42 PM EDT Patient would like to talk with a nurse or Heidy Campos. She states that is something personal. documented in this encounter Plan of Treatment Not on file documented as of this encounter Visit Diagnoses Not on filedocumented in this encounter Care Teams Food And Beverage Lead Relationship Specialty Start Date End Date Yahaira Arteaga DO PCP - General Internal Medicine 09/30/14 09/12/17 Jordy Saleem PCP - General Internal Medicine 09/13/17 documented as of this encounter
--- OUTSIDE RECORDS SUMMARY | 2025-04-09 12:53 | XMS_ITS | Encounter Summary ---
Author Organization [facility] Address [address] [place] [address] Phone Care Team Providers Care Cdl Program Coordinator Name Role Phone Colleen Valdivia DO Primary Care Provider [phone] Encounter Details Date Type Department Care Team (Late st Contact Info) Description 05/10/2017 Conversion Encounter [facility] [place] [address] [place] [address] Social History Tobacco Use Types Packs/Day Years [...] on filedocumented in this encounter Care Teams Cdl Program Coordinator Relationship Specialty Start Date End Date Colleen Valdivia DO [address] [place] [address] PCP - General 05/04/17 01/04/23 documented as of this encounter
== END 2025-04-09 12:23 | disposition home or self-care (01) ==
LOC: HO.MAMMO 12:22
PROVIDERS: PCP Internal Medicine; Visit Provider Advanced Practice Midwife
DX: N63.15 Unspecified lump in the right breast, overlapping quadrants (principal)
CPT/HCPCS: 76642; 77062; 77066

== ENCOUNTER → 2025-04-09 12:30 | Outpatient (BNV) | payer OTHER, SELFPAY | PROVIDERS: PCP Internal Medicine; Visit Provider Internal Medicine | DX: N64.4 Mastodynia (principal); Z80.41 Family history of malignant neoplasm of ovary | CPT/HCPCS: 76642; 77062; 77066 ==

== ENCOUNTER 2025-06-02 08:40 | Outpatient (REF) | payer OTHER, SELFPAY ==
[2025-06-02 11:29] LABS: Chlamydia pneumoniae PCR Not Detected (Not Detect.); Coronavirus 229E PCR Not Detected (Not Detect.); Coronavirus HKU1 PCR Not Detected (Not Detect.); Coronavirus NL63 PCR Not Detected (Not Detect.); Coronavirus OC43 PCR Not Detected (Not Detect.); RSV PCR Not Detected (Not Detect.); Rhino/Enterovirus PCR Detected (Not Detect.)
[2025-06-02 11:36] LABS: Influenza A H1 PCR Not Detected (Not Detect.); Influenza A H1-2009 PCR Not Detected (Not Detect.); Influenza A H3 PCR Not Detected (Not Detect.); SARS-CoV-2 PCR Not Detected (Not Detect.)
== END 2025-06-02 08:41 | disposition home or self-care (01) ==
LOC: HO.LNP 08:40
PROVIDERS: PCP Internal Medicine; Visit Provider Physician Assistant Medical
DX: J06.9 Acute upper respiratory infection, unspecified (principal); Z13.89 Encounter for screening for other disorder
CPT/HCPCS: 87633; 87880; 99212

== ENCOUNTER 2025-06-02 08:40 | Outpatient (AMB) | payer OTHER, SELFPAY ==
[2025-06-02 08:41] VITALS: BP 112/76; PULSE 79; TEMP 36.9; O2SAT 100; BMI 30.6
--- NOTE | 2025-06-02 08:41 | AM.OFFWIN_ITS ---
Intake Vital Signs 06/02/25 08:41 Height 5 ft 2 in Weight 167 lb 4 oz BMI 30.6 BP 112/76 Blood Pressure Location Lt brachial Position Sitting Pulse 79 Pulse Source Pulse Oximeter Temp 98.4 F Temp Source Oral Pulse Oximetry (%) 100 Oxygen Delivery Method Room Air Intake Visit Reasons: ep sinus infection Intake Note: Pt presents to the office today for c/o green mucous, body aches, diarrhea, cough, x3 days. Patient Tobacco Use Status: Never used Tobacco Allergies No Known Allergies Allergy (Verified 06/02/25 08:44) HPI HPI Comments History of Present Illness Details History - The patient is a 34-year-old female pr esenting with symptoms of sinusitis and viral upper respiratory infection. - Reports body aches, chest pain, conges tion, and green nasal discharge for three days. - Taking allergy medications, including a possible Zyrtec equivalent, without significant relief. - Denies fever but reports significant b bonita aches and diarrhea, suggesting a possible viral etiology. - History of migraines associated with s inus pressure, denies current dental pain. - Tested negative for COVID-19 twice usi ng home tests and has a negative strep test. - Experiences postnasal drip and a cough that started two days ago, causing stomach discomfort. - Previously used an albuterol inhaler f or similar symptoms and requests a refill. - She denies abd pain, recent travel. - Her kids have similar symptoms at home . Physical Exam General: Cooperative, healthy appearing, comfortable and no acute distress Orientation/consciousness: Patient oriented x3 Limitations: No limitations Head: Normal to inspection Ears: Hearing impaired due to congestion, external ears normal and TM's normal bilaterally Nose: Normal external nose present, normal nares present. Face and sinus: Sinuses tender to palpation. Mouth: Normal oral and palatal mucosa present and moist mucous membranes noted. Throat: Tonsils normal. Uvula is midline. Posterior oropharynx with erythema and no exudates. Eyes: Appearance normal, both eyes and all related structures. Neck: Normal visual inspection, full ROM. No lymphadenopathy noted. Respiratory: Clear to auscultation bilaterally. Normal respiratory effort, able to speak in complete sentences. No respiratory distress, not tachypneic, no tripod positioning and no use of accessory muscles. Cardiovascular: Regular rate and rhythm. Normal S1 and S2 Skin: No rashes or lesions noted Patient was informed and verbally consented to the use of an ambient scribe for clinic note documentation during this visit [facility] Medical History Breast mass, right History of abnormal cervical Pap smear URI (upper respiratory infection) Cough Symptomatic mammary hypertrophy Anxiety History of anxiety Migraine Anemia Surgical History No pertinent past surgical history Family History Mother Ovarian cancer Metastatic disease H/O colectomy Maternal Grandmother Heart disease CVD (cardiovascular disease) Diabetes mellitus Maternal Grandfather Hypertension Social History Housing: House Alcohol intake: current Alcohol intake frequency: holidays/special occasions only Alcohol type: other Patient Tobacco Use Status: Never used Tobacco Cigarettes Per Day: 2 e-Cigarette/Vaping Use: Never Used service: No Current occupational status: employed Current occupation: [employer] Sexual orientation: Straight/Heterosexual Gender identity: Female Cognitive needs: No Hearing needs: No Vision needs: No Female Reproductive History Menstrual Age of Menarche: 13 Review of Systems Const All systems reviewed & are unremarkable except as noted in HPI and below Physical Exam Vital Signs: Last Vital Signs Temp 98.4 F 06/02/25 08:41 Pulse 79 06/02/25 08:41 BP 112/76 06/02/25 08:41 Pulse Ox 100 06/02/25 08:41 Oxygen Delivery Method Room Air 06/02/25 08:41 BMI result Body Mass Index 30.6 Results AMB Rapid Strep AMB Rapid Strep Negative Last Edit by Kristy Pandya CMA on 06/02/25 09:00 Assessment & Plan Assessment & Plan (1) URI with cough and congestion: Code(s): J06.9 - Acute upper respiratory infection, unspecified Plan Most likely sinusitis vs flu vs covid vs URI vs viral illness rapid strep is negative plan - Manage with symptomatic treatment including Flonase and albuterol inhaler refill. - will order covid/flu/rsv test. - Symptomatic treatment with cough medicine and monitoring for symptom progression. - Negative strep tests reduce the likelihood of these infections. - will give her a work note for 2 days - will call her with the results - follow up with PCP Orders: Orders AMB Rapid Strep Screen Today Dora Salazar PA-C Z13.9 - Encounter for screening, unspecified Resp Pathogen Panel - [facility] Today Shell Bishop PA-C J06.9 - Acute upper respiratory infection, unspecified Medications: New fluticasone propionate 50 mcg/actuation administer into each nostril 1 spray intranasal Q12H 16 grams 0RF Shell Bishop PA-C benzonatate 100 mg PO bid-tid PRN 21 caps 0RF Cough 7 days Shell Bishop PA-C Refilled albuterol sulfate 90 mcg/actuation 2 puffs inhalation Q6H PRN 6.7 grams 0RF shortness of breath or wheezing Shell Bishop PA-C Coding Level of Care Code Est Pt Level 3 (22291) Diagnoses URI with cough and congestion J06.9
--- OUTSIDE RECORDS SUMMARY | 2025-06-02 09:46 | XMS_ITS | Encounter Summary ---
Author Organization [facility] Address [address] [place] [address] Phone Care Team Providers Care Automatic Hemmer Name Role Phone Colleen Valdivia DO Primary Care Provider [phone] Encounter Details Date Type Department Care Team (Late st Contact Info) Description 05/10/2017 Conversion Encounter [facility] [place] [address] [place] [address] Social History Tobacco Use Types Packs/Day Years [...] on filedocumented in this encounter Care Teams Automatic Hemmer Relationship Specialty Start Date End Date Colleen Valdivia DO [address] [place] [address] PCP - General 05/04/17 01/04/23 documented as of this encounter
--- OUTSIDE RECORDS SUMMARY | 2025-06-02 09:46 | XMS_ITS | Clinical Summary ---
Author Organization [facility] Address [address] [place] [phone] Phone Care Team Providers Care Returned Materials Inspector Name Role Phone Unavailable Primary Care Provider Unavailabl e Immunizations Immunization Administration Dates Next Due DTP 10/31/1994, 2,04/08/1991,12/23,1990 HPV, Quadrivalent 01/30/2008,11/15/2007 Hep B, ped/adol 06/20/1991,1990,1990 Hib (PRP-T) 04/22/1992, 1,1990,10/18 Influenza, injectable, trivalent 08/03/2008 MMR 10/31/1994,04/22/1992 Meningococcal Conj (Menactra) MCV4P 11/15/2007 OPV 10/31/1994, 2,1990,10/18 Td (adult) (MBL), 2 Lf tetan us toxoid, PF, adsorbed 04/14/2002 Tdap 11/15/2007 Varicella 11/15/2007,12/17/1995 Family History Relation Name Status Comments Half-Brother Alive Half brother (M ): Alive and well Mother Alive Mother: Alive a nd well Other Family history of Seizure disorder, Family history of Migraines, Family history of Diabetes mellitus, Family history of Elevated cholesterol Social History Tobacco Use Types Packs/Day Years Used Date Smoking Tobacco: Never Assessed Comments Unknown Sex and Gender Information Value Date Recorded Sex Assigned at Not on file Legal Sex Female 4:32 PM EDT Gender Identity Not on file Sexual Orientation Not on file Plan of Treatment Health Maintenance Due Date Last Done Comments HPV Vaccines (3 - 3-dose series) 05/15/2008 01/30/2008, 11/15/2007 DTaP,Tdap,and Td Vaccines (7 - Td or Tdap) 11/15/2017 11/15/2007, 04/14/2002, 10/31/1994, Additional history exists Influenza Vaccines (#1) 2025 08/03/2008 COVID-19 Vaccine ( season) 2025 Hepatitis B Vaccines Completed 06/20/1991, 1990, 1990 HIB Vaccines Completed 04/22/1992, 03/24, 1990, Additional history exists IPV Vaccines Completed 10/31/1994, 03/26, 1990, Additional history exists MMR Vaccines Completed 10/31/1994, 04/22/1992 Meningococcal Vaccine Completed 11/15/2007 Varicella Vaccines Completed 11/15/2007, 12/17/1995 Hepatitis A Vaccines Aged Out No long er eligible based on patient's age to complete this topic Men B Vaccine Aged Out No longer elig ible based on patient's age to complete this topic Pneumococcal Vaccine Aged Out No long er eligible based on patient's age to complete this topic
== END 2025-06-02 09:11 | disposition home or self-care (01) ==
PROVIDERS: PCP Internal Medicine; Visit Provider Physician Assistant Medical
DX: J06.9 Acute upper respiratory infection, unspecified (principal); Z13.9 Encounter for screening, unspecified

== ENCOUNTER 2025-07-10 08:42 | Outpatient (AMB) | payer OTHER, SELFPAY ==
--- NOTE | 2025-07-10 08:53 | MHC.OFFWIV ---
Intake Vital Signs 07/10/25 08:57 Height 5 ft 2 in Weight 164 lb BMI 30.0 BP 120/66 Blood Pressure Location Rt brachial Position Sitting Pulse 78 Pulse Source Pulse Oximeter Temp 98.5 F Temp Source Oral Pulse Oximetry (%) 98 Oxygen Delivery Method Room Air Intake Visit Reasons: EP Sinus infection [phone] Intake Note: pt present with sinus congestion with pain, post nasal drip, coughing, teeth/jaw pain, headache x3 days Patient Tobacco Use Status: Never used Tobacco Allergies No Known Allergies Allergy (Verified 07/10/25 08:53) Medication List - Last Reconciled 07/10/25 by Juliette Garrett MD albuterol sulfate 90 mcg/actuation 2 puffs inhalation Q6H PRN fluticasone propionate 50 mcg/actuation 1 spray intranasal Q12H ibuprofen 600 mg PO Q8H PRN levonorgestrel 0 device vaginal ONCE sumatriptan succinate (Imitrex) 50 mg PO Q2-4H PRN MDD 200 mg Do you need a note to return to daycare/school/sports/work: Yes HPI EP Sinus infection [phone] HPI Details History of Present Illness The patient is a 34-year-old female presenting with respiratory symptoms suggestive of bronchitis. Respiratory Symptoms: - The patient reports having visited the clinic approximately a month ago with similar symptoms, presenting initially with flu-like symptoms which included body aches. - Current complaints include significant fatigue, generalized body aches, particularly around the jaw and facial area, alongside drowsy, puffy eyes. - Symptoms progression includes coughing, producing yellow-green phlegm - Persistent symptoms afflict sleep quality due to frequent cough episodes leading to shortness of breath and nocturnal sweating. - Duration of this exacerbation is noted to be three days up until the time of consultation, with the patient reporting substantial distress and feeling unwell. - In the previous encounter, rhinovirus was diagnosed, with treatments including steroid nasal spray, benzonatate, and an albuterol inhaler prescribed. Medical History: - Seasonal asthma Problem List - Bronchitis acute - asthma exacerbation Plan - Initiate therapy with Augmentin (amoxicillin-clavulanate) for presumptive bacterial bronchitis superimposed on viral upper respiratory infection. - Prescribe a course of prednisone to address inflammation and assist with respiratory symptoms management, considering the patient's history of asthma. - Obtain a chest X-ray to rule out pneumonia given the persistence of symptoms and nature of cough production. - Advise adherence to asthma management strategies, including the use of an albuterol inhaler as required. - Prescription renewal for benzonatate to assist in managing cough-related symptoms. - Emphasize increased hydration beneficial to patient?s infection process. Review of Systems - General: No fever no chills - Neurological: no dizziness - Ear nose throat: no hearing difficulty no ear pain - Cardiovascular: No syncope, no chest pain, no palpitations Physical Exam General: No acute distress HEENT: Puffy eyes, facial pain our sinuses Neck: Supple Respiratory system: Able to talk in full sentences, no audible wheeze, coughing, lungs clear Cardiovascular: S1-S2 regular in rate and rhythm Extremities: No new findings INSTRUCTIONAL MATERIALS DIRECTOR: Alert awake oriented x3 motor intact Skin: Normal turgor, PFSH Medical History Breast mass, right History of abnormal cervical Pap smear URI (upper respiratory infection) Cough Symptomatic mammary hypertrophy Anxiety History of anxiety Migraine Anemia Surgical History No pertinent past surgical history Family History Mother Ovarian cancer Metastatic disease H/O colectomy Maternal Grandmother Heart disease CVD (cardiovascular disease) Diabetes mellitus Maternal Grandfather Hypertension Social History Housing: House Alcohol intake: current Alcohol intake frequency: holidays/special occasions only Alcohol type: other Patient Tobacco Use Status: Never used Tobacco Cigarettes Per Day: 2 e-Cigarette/Vaping Use: Never Used service: No Current occupational status: employed 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 Sexual orientation: Straight/Heterosexual Gender identity: Female Cognitive needs: No Hearing needs: No Vision needs: No Female Reproductive History Menstrual Age of Menarche: 13 Physical Exam Vital Signs: Last Vital Signs Temp 98.5 F 07/10/25 08:57 Pulse 78 07/10/25 08:57 BP 120/66 07/10/25 08:57 Pulse Ox 98 07/10/25 08:57 Oxygen Delivery Method Room Air 07/10/25 08:57 BMI result Body Mass Index 30.0 Assessment & Plan Assessment & Plan (1) Acute bronchitis: Code(s): J20.9 - Acute bronchitis, unspecified Qualifiers: Bronchitis organism: other organism Qualified Code(s): J20.8 - Acute bronchitis due to other specified organisms (2) Asthma exacerbation: Code(s): J45.901 - Unspecified asthma with (acute) exacerbation Qualifiers: Asthma severity: moderate Asthma persistence: persistent Qualified Code(s): J45.41 - Moderate persistent asthma with (acute) exacerbation Plan Respiratory Symptoms: - The patient reports having visited the clinic approximately a month ago with similar symptoms, presenting initially with flu-like symptoms which included body aches. - Current complaints include significant fatigue, generalized body aches, particularly around the jaw and facial area, alongside drowsy, puffy eyes. - Symptoms progression includes coughing, producing yellow-green phlegm - Persistent symptoms afflict sleep quality due to frequent cough episodes leading to shortness of breath and nocturnal sweating. - Duration of this exacerbation is noted to be three days up until the time of consultation, with the patient reporting substantial distress and feeling unwell. - In the previous encounter, rhinovirus was diagnosed, with treatments including steroid nasal spray, benzonatate, and an albuterol inhaler prescribed. Medical History: - Seasonal asthma Problem List - Bronchitis acute - asthma exacerbation Plan - Initiate therapy with Augmentin (amoxicillin-clavulanate) for presumptive bacterial bronchitis superimposed on viral upper respiratory infection. - Prescribe a course of prednisone to address inflammation and assist with respiratory symptoms management, considering the patient's history of asthma. - Obtain a chest X-ray to rule out pneumonia given the persistence of symptoms and nature of cough production. - Advise adherence to asthma management strategies, including the use of an albuterol inhaler as required. - Prescription renewal for benzonatate to assist in managing cough-related symptoms. - Emphasize increased hydration beneficial to patient?s infection process. Orders: Orders XR chest 2V Today J20.9 - Acute bronchitis, unspecified Medications: New amoxicillin-pot clavulanate 875-125 mg 1 tab PO BID 20 tabs 0RF 10 days prednisone PO once; 3 tabs for 2 days, then 2 tabs for 3 days, then 1 tab for 3 days, then half tab for 4 days 17 tabs 0RF 12 days Changed From benzonatate 100 mg PO bid-tid 7 days PRN 21 caps 0RF Cough To benzonatate 200 mg PO bid-tid 30 caps 0RF Cough 10 days Coding Level of Care Code Est Pt Level 4 (55908) Diagnoses Acute bronchitis due to other specified organisms J20.8 Bronchitis organism: other organism Moderate persistent asthma with exacerbation J45.41 Asthma severity: moderate Asthma persistence: persistent
[2025-07-10 08:57] VITALS: BP 120/66; PULSE 78; TEMP 36.9; O2SAT 98
--- OUTSIDE RECORDS SUMMARY | 2025-07-10 09:05 | XMS_ITS | Encounter Summary ---
Author Organization [facility] Address [address] [place] [address] Phone Care Team Providers Care Hydroponics Worker Name Role Phone Colleen Valdivia DO Primary Care Provider [phone] Encounter Details Date Type Department Care Team (Late st Contact Info) Description 05/10/2017 Conversion Encounter [facility] [place] [address] [place] [address] Social History Tobacco Use Types Packs/Day Years [...] on filedocumented in this encounter Care Teams Hydroponics Worker Relationship Specialty Start Date End Date Colleen Valdivia DO [address] [place] [address] PCP - General 05/04/17 01/04/23 documented as of this encounter
--- OUTSIDE RECORDS SUMMARY | 2025-07-10 09:05 | XMS_ITS | Clinical Summary ---
Author Organization [facility] Address [address] [place] [id number] Phone Care Team Providers Care Mergers And Acquisitions Consultant Name Role Phone Unavailable Primary Care Provider [...] Vaccines (#1) 2025 08/03/2008 COVID-19 Vaccine ( - 2024- season) 2025 Hepatitis B Vaccines Completed 06/20/1991, [...]
== END 2025-07-10 09:17 | disposition home or self-care (01) ==
PROVIDERS: PCP Internal Medicine; Visit Provider Internal Medicine
DX: J20.8 Acute bronchitis due to other specified organisms (principal); J45.41 Moderate persistent asthma with (acute) exacerbation

== ENCOUNTER 2025-07-10 08:42 | Outpatient (REF) | payer OTHER, SELFPAY ==
--- NOTE | ~2025-07-10 | XR_ITS ---
EXAMINATION: XR CHEST CLINICAL INFORMATION: J20.9 - Acute bronchitis, unspecified COMPARISON: 10/27/20. TECHNIQUE: 2 views of the chest were obtained. FINDINGS: The cardiac, hilar, and mediastinal contours are normal. The lungs are clear bilaterally. There is no pneumothorax or pleural effusion. There is no focal osseous or soft tissue abnormality. XR/XR chest 2V IMPRESSION: No active pulmonary disease. Electronically signed by: Farrukh Huitron MD 07/10/2025 09:35 AM EDT
== END 2025-07-10 08:43 | disposition home or self-care (01) ==
LOC: HO.HMGCX 08:42
PROVIDERS: PCP Internal Medicine; Visit Provider Internal Medicine
DX: J45.41 Moderate persistent asthma with (acute) exacerbation (principal); J20.8 Acute bronchitis due to other specified organisms
CPT/HCPCS: 71046; 99212

== ENCOUNTER → 2025-07-10 09:18 | Outpatient (BNV) | payer OTHER, SELFPAY | PROVIDERS: PCP Internal Medicine; Visit Provider Radiology Diagnostic Radiology | DX: J20.9 Acute bronchitis, unspecified (principal) | CPT/HCPCS: 71046 ==

== ENCOUNTER 2025-08-13 15:46 | Outpatient (REF) | payer OTHER, SELFPAY ==
--- NOTE | ~2025-08-13 | US_ITS ---
EXAMINATION: US PELVIS, COMPLETE CLINICAL INFORMATION: R10.2 - Pelvic and perineal pain COMPARISON: Ultrasound 01/25/2024 TECHNIQUE: Transabdominal and transvaginal imaging was performed. FINDINGS: LMP: One week ago Uterus is retroverted and retroflexed , measuring 9.8 x 4.1 x 4.3 cm. No focal uterine lesion. Nabothian cysts are seen. IUD appropriately positioned within the endometrial canal. Endometrial thickness to measure due to the IUD. Right ovary measures 3.8 x 1.5 x 2.5 cm. Volume 7.5 mL. Left ovary measures 3.1 x 1.9 x 2.1 cm. Volume 6.5 mL. Bilateral ovaries appear unremarkable No free fluid in the cul-de-sac. US/US pelvic and transvaginal IMPRESSION: *IUD appears appropriately positioned and medial canal. *Otherwise unremarkable ultrasound Electronically signed by: Obed Zarate MD 08/14/2025 03:27 PM [facility]
--- OUTSIDE RECORDS SUMMARY | 2025-08-13 20:47 | XMS_ITS | Encounter Summary ---
Author Organization [facility] Address [address] [place] [address] Phone Care Team Providers Care Log Marker Name Role Phone Colleen Valdivia DO Primary Care Provider [phone] Encounter Details Date Type Department Care Team (Late st Contact Info) Description 05/10/2017 Conversion Encounter [facility] [place] [address] [place] [address] Social History Tobacco Use Types Packs/Day Years [...] on filedocumented in this encounter Care Teams Log Marker Relationship Specialty Start Date End Date Colleen Valdivia DO [address] [place] [address] PCP - General 05/04/17 01/04/23 documented as of this encounter
--- OUTSIDE RECORDS SUMMARY | 2025-08-13 20:47 | XMS_ITS | Clinical Summary ---
Author Organization [facility] Address [address] [place] [id number] Phone Care Team Providers Care Press And Blow Machine Tender Name Role Phone Unavailable Primary Care Provider [...]
== END 2025-08-13 15:47 | disposition home or self-care (01) ==
LOC: HO.US 15:46
PROVIDERS: PCP Internal Medicine; Visit Provider Advanced Practice Midwife
DX: R10.20 Pelvic and perineal pain unspecified side (principal)
CPT/HCPCS: 76830; 76856

== ENCOUNTER → 2025-08-13 15:47 | Outpatient (BNV) | payer OTHER, SELFPAY | PROVIDERS: PCP Internal Medicine; Visit Provider Radiology Diagnostic Ultrasound | DX: R10.20 Pelvic and perineal pain unspecified side (principal); Z30.431 Encounter for routine checking of intrauterine contraceptive device | CPT/HCPCS: 76830; 76856 ==

== ENCOUNTER 2025-09-09 11:58 | Outpatient (AMB) | payer OTHER, SELFPAY ==
--- NOTE | 2025-09-09 12:19 | A.OFFVIS_ITS ---
Vital Signs 09/09/25 12:21 Height 5 ft 2 in Weight 161 lb 4 oz BMI 29.5 BP 98/62 Blood Pressure Location Lt brachial Position Sitting Intake Visit Reasons: Ultra sound follow up Intake Note: pt denies any problems or concerns. Jelly Maker Required: No Service Center Supervisor: Service Center Supervisor Present Allergies No Known Allergies Allergy (Verified 09/09/25 12:24) Medication List - Last Reconciled 09/09/25 by Ronit Dupree LPN ibuprofen 600 mg PO Q8H PRN levonorgestrel 0 device vaginal ONCE Is last menstrual period known: Yes Last menstrual period: 07/27/25 Post menopausal: No Patient : No Do you need a note to return to daycare/school/sports/work: No HPI Comments Details: Patient is here today for a follow up on her left sided pelvic pain. She repo rts occasional left-sided worsening. History of Mirena IUD. Not sexually active in 5 months. Does not bleed regularly. PFSH Medical History Breast mass, right History of abnormal cervical Pap smear URI (upper respiratory infection) Cough Symptomatic mammary hypertrophy Anxiety History of anxiety Migraine Anemia Surgical History No pertinent past surgical history Family History Mother Ovarian cancer Metastatic disease H/O colectomy Maternal Grandmother Heart disease CVD (cardiovascular disease) Diabetes mellitus Maternal Grandfather Hypertension Social History Housing: House Alcohol intake: current Alcohol intake frequency: holidays/special occasions only Alcohol type: other Patient Tobacco Use Status: Never used Tobacco Cigarettes Per Day: 2 e-Cigarette/Vaping Use: Never Used Patient : No service: No Current occupational status: employed Current occupation: [employer] Sexual orientation: Straight/Heterosexual Gender identity: Female Cognitive needs: No Hearing needs: No Vision needs: No Female Reproductive History Menstrual Age of Menarche: 13 Duration of menses: <3 days Date of last menstrual period: 07/27/25 control method: progestin IUCD Total pregnancies: 3 Full term: 2 Number of Living Children: 2 Ab induced: 1 Date of last pap smear: 03/20/25 History of abnormal pap smear: Yes (5 yrs ago.) History of STI: No Review of Systems Const All systems reviewed & are unremarkable except as noted in HPI and below Endo Reports no additional complaints Physical Exam Vital Signs: Last Vital Signs BP 98/62 09/09/25 12:21 BMI result Body Mass Index 29.5 Const General: cooperative, healthy appearing and no acute distress Psych Appearance: well kempt Attitude: cooperative Thought process: Normal thought process present Results AMB Test Urine AMB Test Urine Negative Last Edit by Ronit Dupree LPN on 12:49 Results Reviewed Results Reviewed: [address] [address] Ultrasound Report Signed Patient: Justus Cates MR#: [id number] : 1990 Acct:[id number] Age/Sex: 34 / F ADM Date: 08/13/25 Loc: .[place] Attending Dr: Letty Herzog CNM Ordering Physician: Letty Herzog CNM Date of Service: 08/13/25 Procedure(s): US pelvic and transvaginal Accession Number(s): [id number] cc: Liliana Cooper MD; Letty Herzog CNM~ Reason for Exam: R10.2 - Pelvic and perineal pain EXAMINATION: US PELVIS, COMPLETE CLINICAL INFORMATION: R10.2 - Pelvic and perineal pain COMPARISON: Ultrasound 01/25/2024 TECHNIQUE: Transabdominal and transvaginal imaging was performed. FINDINGS: LMP: One week ago Uterus is retroverted and retroflexed , measuring 9.8 x 4.1 x 4.3 cm. No focal uterine lesion. Nabothian cysts are seen. IUD appropriately positioned within the endometrial canal. Endometrial thickness to measure due to the IUD. Right ovary measures 3.8 x 1.5 x 2.5 cm. Volume 7.5 mL. Left ovary measures 3.1 x 1.9 x 2.1 cm. Volume 6.5 mL. Bilateral ovaries appear unremarkable No free fluid in the cul-de-sac. US/US pelvic and transvaginal IMPRESSION: *IUD appears appropriately positioned and medial canal. *Otherwise unremarkable ultrasound Electronically signed by: Obed Zarate MD 08/14/2025 03:27 PM EST RP Dictated By: Obed Zarate MD Signed By: <Electronically signed by Obed Zarate MD in OV> 08/14/25 1527 DD/ 1610 TD/TT: 08/13/25 1620 Absence Management Consultant: BRUCE Assessment & Plan Assessment & Plan (1) Pelvic pain: Code(s): R10.2 - Pelvic and perineal pain Category: Medical Qualifiers: Laterality: left Qualified Code(s): R10.22 - Pelvic and perineal pain left side Plan Discussed: Ultrasound findings- IMPRESSION: *IUD appears appropriately positioned and medial canal. *Otherwise unremarkable ultrasound Advised to monitor left-sided pain and report increased or persistent pain. Common causes of pelvic pain. Bleeding patterns with the Mirena IUD and very. Annual exam scheduled for March 2026. The patient expressed understanding and agreement with the plan of care. All of her questions and concerns were address ed to the best of my ability. On This note is constructed using voice recognition software. While every effort has been made to ensure accuracy, central sterile technician errors may have been included. Orders: Orders AMB HCG Urine Test Today Z32.02 - Encounter for test, result negative Coding Level of Care Code Est Pt Level 3 (99677) Diagnoses Left-sided pelvic pain R10.22 Laterality: left
[2025-09-09 12:21] VITALS: BP 98/62; BMI 29.5
--- OUTSIDE RECORDS SUMMARY | 2025-09-09 15:53 | XMS_ITS | Clinical Summary ---
Author Organization [facility] Address [address] [place] [phone] Phone Care Team Providers Care Product Safety Administrator Name Role Phone Unavailable Primary Care Provider [...]
--- OUTSIDE RECORDS SUMMARY | 2025-09-09 15:53 | XMS_ITS | Encounter Summary ---
Author Organization [facility] Address [address] [place] [address] Phone Care Team Providers Care Information And Referral Director Name Role Phone Colleen Valdivia DO Primary Care Provider [phone] Encounter Details Date Type Department Care Team (Late st Contact Info) Description 05/10/2017 Conversion Encounter [facility] [place] [address] [place] [address] Social History Tobacco Use Types Packs/Day Years [...] on filedocumented in this encounter Care Teams Information And Referral Director Relationship Specialty Start Date End Date Colleen Valdivia DO [address] [place] [address] PCP - General 05/04/17 01/04/23 documented as of this encounter
== END 2025-09-09 14:48 | disposition home or self-care (01) ==
LOC: HO.HWS 11:59
PROVIDERS: PCP Internal Medicine; Visit Provider Advanced Practice Midwife
DX: R10.22 Pelvic and perineal pain left side (principal); Z32.02 Encounter for pregnancy test, result negative
CPT/HCPCS: 99213

== ENCOUNTER → 2025-09-09 11:58 | Outpatient (BNVA) | payer OTHER, SELFPAY | PROVIDERS: PCP Internal Medicine; Visit Provider Advanced Practice Midwife | DX: R10.22 Pelvic and perineal pain left side (principal); Z32.02 Encounter for pregnancy test, result negative | CPT/HCPCS: 81025; 99212 ==